=== PATIENT | male | born 1950 | race Caucasian/White ===

== ENCOUNTER 2019-08-27 17:21 | Emergency (ER) | payer MEDICARE, OTHER, SELFPAY ==
--- NOTE | ~2019-08-27 | US_ITS ---
EXAMINATION: US venous doppler LE RT EXAM DATE: 08/27/2019 18:10 INDICATION: Right leg pain and swelling. TECHNIQUE: Multiple grayscale, color flow and Doppler images of the right lower extremity deep venous system were obtained and reviewed. There is no prior study for comparison. FINDINGS: The right common femoral, femoral and profunda veins demonstrate normal color flow, respira tory variation, augmentation and compressibility. Compressibility, color flow confirmed within the r ight popliteal, posterior tibial, peroneal, and greater saphenous veins. IMPRESSION: 1. No right lower extremity deep venous thrombosis. Reviewed, dictated and finalized at location A.
[2019-08-27 17:29] VITALS: BP 174/91; PULSE 79; RESP 18; TEMP 36.1; O2SAT 95
[2019-08-27 17:53] LABS: Basophils Percent Auto 0.5 % (0.2-1.2); Eosinophils Absolute Auto 0.3 K/mm3 (0-0.3); Eosinophils Percent Auto 5.1 % (0-4.4); Hematocrit 47.6 % (42.0-52.0); Hemoglobin 16.3 g/dL (14.0-18.0); Immature Granulocyte Absolute 0.01 K/mm3 (0.00-0.031); Immature Granulocyte Percent A 0.2 % (0-0.5); Lymphocytes Absolute Auto 2.06 K/mm3 (0.9-3.2); Lymphocytes Percent Auto 32.9 % (18.3-44.2); Mean Corpuscular HGB Conc 34.2 g/dl (32-36); Mean Corpuscular Hemoglobin 30.9 pg (26-34); Mean Corpuscular Volume 90.3 fl (80-100); Mean Platelet Volume 9.3 fl (7.4-10.4); Monocytes Absolute Auto 0.5 K/mm3 (0.1-0.6); Neutrophils Absolute Auto 3.3 K/mm3 (1.3-6.7); Neutrophils Percent Auto 53.3 % (45.5-73.1); Platelet Count Result 258 k/mm3 (150-375); Red Blood Count 5.27 M/mm3 (4.6-6.20); White Blood Count 6.3 K/mm3 (4.5-10.0)
[2019-08-27 18:06] LABS: Blood Urea Nitrogen 15 mg/dL (9-20); Calcium 9.2 mg/dL (8.4-10.2); Carbon Dioxide 30 mmol/L (22-30); Chloride 100 mmol/L (98-107); Estimated CRCL calculation 77 ml/min; Estimated Glomerular Filt Rate > 60; Glucose 100 mg/dL (75-110); Potassium 3.1 mmol/L (3.4-5.0); Sodium 138 mmol/L (137-145)
--- NOTE | 2019-08-27 18:33 | ED.LOWEXIN ---
HPI - Extremity Injury (Lower) General Chief Complaint: Extremity Injury, Lower Stated Complaint: right leg pain Time Seen by Provider: 08/27/19 17:27 History of Present Illness HPI Narrative: Patient is a 69-year-old male who presents the ER with right lower extremity pain. Located in the right posterior thigh and radiates down the leg. It is intermittent. If he lays down flat when it is occurring the pain goes away. No recent injury or trauma. Reports he has had increased swelling of the affected leg. No history of DVT or PE. He is not on blood thinners. He is without chest pain or shortness of breath. Related Data Home Medications Medication Instructions Recorded Confirmed clopidogrel 75 mg PO DAILY 08/27/19 Allergies Allergy/AdvReac Type Severity Reaction Status Date / Time No Known Allergies Allergy Unverified 08/27/19 17:32 Review of Systems Review of Systems: All systems reviewed & are unremarkable except as noted in HPI and below Cardiovascular: Cardiovascular: Denies chest pain Respiratory: Respiratory: Denies cough and Denies dyspnea Musculoskeletal: Musculoskeletal: Reports muscle cramps Comments: Right lower extremity edema PMFSH Past Medical History Medical History (Updated 08/27/19 @ 18:37 by Kvng Brown MD) Patient denies significant medical history Surgical History Surgical History (Updated 08/27/19 @ 18:35 by Kvng Brown MD) H/O right knee surgery Family History Family History (Updated 12/14/15 @ 09:14 by DOCTOR UNKNOWN) Mother Family history of lung cancer Other Diabetes mellitus Family history of cardiovascular disease Hypertension Social History Social History Smoking status: Never smoker Alcohol intake: current Gender identity (if verbalized by the patient): Male Exam Narrative: Exam Narrative: GENERAL: Well-appearing, well-nourished, and in no acute distress. HEAD: Normocephalic, atraumatic. CHEST: Clear to auscultation. No respiratory distress. HEART: Regular rate and rhythm. Normal peripheral pulses. EXTREMITIES: Normal range of motion. No reproducible tenderness right lower extremity in the calf or thigh. Trace mid calf edema on the right side when compared to the left. Brisk capillary refill with normal dorsalis pedis and posterior tibial pulses on the right side. SKIN: Warm, dry, no rash. NEURO: Alert and oriented x3. Course Course Emergency Course: Patient informed of results. Discharge home. Suspect patient's having some muscle cramps. Will recommend potassium supplementation. Vital Signs Vital signs: Vital Signs Temperature 97.0 F L 08/27/19 17:29 Pulse Rate 79 08/27/19 17:29 Respiratory Rate 18 08/27/19 17:29 Blood Pressure 174/91 H 08/27/19 17:29 Pulse Oximetry 95 08/27/19 17:29 Temperature 97.0 F L 08/27/19 17:29 Pulse Rate 79 08/27/19 17:29 Respiratory Rate 18 08/27/19 17:29 Blood Pressure 174/91 H 08/27/19 17:29 Pulse Oximetry 95 08/27/19 17:29 MDM - Extremity Injury (Lower) Lab Data Result diagrams: 08/27/19 17:47 08/27/19 17:47 Labs: Lab Results 08/27/19 08/27/19 Range/Units 17:47 17:47 WBC 6.3 (4.5-10.0) K/mm3 RBC 5.27 (4.6-6.20) M/mm3 Hgb 16.3 (14.0-18.0) g/dL Hct 47.6 (42.0-52.0) % MCV 90.3 (80-100) fl MCH 30.9 (26-34) pg MCHC 34.2 (32-36) g/dl RDW 13.0 (11.5-14.5) % Plt Count 258 (150-375) k/mm3 MPV 9.3 (7.4-10.4) fl Immature Gran % (Auto) 0.2 (0-0.5) % Neut % (Auto) 53.3 (45.5-73.1) % Lymph % (Auto) 32.9 (18.3-44.2) % Crook % (Auto) 8.0 (2.6-8.5) % Eos % (Auto) 5.1 H (0-4.4) % Baso % (Auto) 0.5 (0.2-1.2) % Lymph # (Auto) 2.06 (0.9-3.2) K/mm3 Crook # (Auto) 0.5 (0.1-0.6) K/mm3 Eos # (Auto) 0.3 (0-0.3) K/mm3 Baso # (Auto) 0.0 (0.0-0.1) K/mm3 Abs Immat Gran (auto) 0.01 (0.00-0.031) K/mm3 Absolute Neuts (auto) 3.3 (1.3-6.7) K/mm3 Ab
== END 2019-08-27 18:59 | disposition home or self-care (01) ==
PROVIDERS: Emergency Provider Emergency Medicine; PCP Internal Medicine
DX: E87.6 Hypokalemia (principal); R25.2 Cramp and spasm
CPT/HCPCS: 36415; 80048; 85025; 93971; 99284

== ENCOUNTER 2020-09-15 12:55 | Inpatient (IN) | payer MEDICARE, OTHER, SELFPAY ==
[2020-09-15] VITALS (17 sets, daily range): BP systolic 119–191; BP diastolic 87–110; PULSE 74–101; RESP 14–28; TEMP 37.4–39.3; O2SAT 93–99; BMI 36.6
--- NOTE | ~2020-09-15 | CT_ITS ---
EXAMINATION: CT cervical spine wo con DATE: 09/16/2020 11:08 INDICATION: Neck injury. TECHNIQUE: Computed tomography (CT) of the cervical spine was performed without intravenous contrast. Automated exposure control and iterative reconstruction technique were employed. The dose-length pro duct was 505.24 mGy-cm. COMPARISON: None FINDINGS: There is 3 degrees levocurvature of cervical spine. There is mild kyphosis of cervical spin e. Vertebral body heights are normal. There is 2 mm anterolisthesis of C3 on C4. There is mildly decr eased disc height at C2-C3 and C3-C4, and severely decreased disc height from C5-C6 through C7-T1. Th ere is an old healed fracture of T1 spinous process. 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 The following disc levels are specifically discussed: C2-C3: There is mild bilateral uncovertebral joint osteoarthritis. There is severe bilateral facet glenna int osteoarthritis. There is moderate bilateral neural foraminal stenosis. There is mild central vick l stenosis. C3-C4: There is severe right and moderate left uncovertebral joint osteoarthritis. There is severe bi lateral facet joint osteoarthritis. There is moderate bilateral neural foraminal stenosis. There is m oderate central canal stenosis. C4-C5: There is mild bilateral uncovertebral joint osteoarthritis. There is severe bilateral facet glenna int osteoarthritis. There is moderate bilateral neural foraminal stenosis. There is moderate central canal stenosis. C5-C6: There is severe bilateral uncovertebral joint osteoarthritis. There is mild bilateral facet glenna int osteoarthritis. There is moderate bilateral neural foraminal stenosis. There is severe central ca nal stenosis. C6-C7: There is severe bilateral uncovertebral joint osteoarthritis. There is moderate bilateral face t joint osteoarthritis. There is mild right and severe left neural foraminal stenosis. There is moder ate central canal stenosis. C7-T1: There is severe bilateral uncovertebral joint osteoarthritis. There is severe bilateral facet joint osteoarthritis. There is moderate right and severe left neural foraminal stenosis. There is mil d central canal stenosis. IMPRESSION: 1. No acute fracture. 2. Severe cervical spondylosis. Reviewed, dictated and finalized at location B.
--- NOTE | ~2020-09-15 | XR_ITS ---
EXAMINATION: XR chest 1V portable DATE: 09/15/2020 14:50 INDICATION: 3 days of fever TECHNIQUE: frontal view of the chest was obtained. COMPARISON: None FINDINGS: Confluent airspace opacity in the right lower lung zone concerning for pneumonia. Left lung is clear. No pleural effusion or pneumothorax. Heart size is normal. There is increased prominence of the righ t hilum and aortic arch with smooth margins. The former could be due to other lymphadenopathy or enla rgement of the central pulmonary arteries due to pulmonary arterial hypertension. The latter suggests possibility of aortic aneurysm or ectasia. IMPRESSION: 1. Airspace opacities in the right lower lung zone which given the provided history is concerning for pneumonia. 2. Increased prominence of the right hilum which could be due to nonspecific lymphadenopathy or enlar gement of the central pulmonary arteries due to pulmonary arterial hypertension. 3. Increased prominence of the aortic arch which raises possibility of aortic aneurysm or ectasia. Co uld consider contrast-enhanced chest CT for further evaluation of both this and the right hilar enlar gement. Reviewed, dictated and finalized at location A. IMPRESSION: 1. Airspace opacities in the right lower lung zone which given the provided his tory is concerning for pneumonia. 2. Increased prominence of the right hilum which could be due to nonspecific ly mphadenopathy or enlargement of the central pulmonary arteries due to pulmonary arterial hypertension. 3. Increased prominence of the aortic arch which raises possibility of aortic a neurysm or ectasia. Could consider contrast-enhanced chest CT for further evalu ation of both this and the right hilar enlargement.
--- NOTE | ~2020-09-15 | CT_ITS ---
EXAMINATION: CTA chest DATE: 09/16/2020 11:08 INDICATION: Aortic aneurysm. Abnormal chest radiographs. TECHNIQUE: Computed tomographic angiography (CTA) of the chest was performed with 100 mL Omnipaque-35 0 intravenous contrast. Automated exposure control and iterative reconstruction technique were employ ed. The dose-length product was 1153.51 mGy-cm. Maximum intensity projection 3D-reconstructions of th e aorta and other arteries were constructed by the technologist on a separate workstation. COMPARISON: Chest single view 09/15/2020 FINDINGS: Motion artifact is noted. There are airspace opacities and groundglass opacities with air b ronchograms in right middle lobe, consistent with pneumonia. There are trace pleural effusions. There are nodules in the thyroid measuring up to 7 mm, likely not clinically significant. The heart size i s normal. There are coronary artery calcifications. No pericardial effusion. There is ectasia of asce nding aorta measuring 4.1 cm. The central pulmonary arteries are enlarged, consistent with pulmonary arterial hypertension. There are cysts in left kidney measuring up to 6.7 cm. There are bridging endp late osteophytes at multiple levels in the spine, consistent with diffuse idiopathic skeletal hyperos tosis (DISH). IMPRESSION: 1. Right middle lobe pneumonia. 2. Ectasia of ascending aorta measuring 4.1 cm. Reviewed, dictated and finalized at location B.
--- NOTE | ~2020-09-15 | CT_ITS ---
EXAMINATION: CT brain wo con DATE: 09/16/2020 11:08 INDICATION: Altered mental status TECHNIQUE: Computed tomography (CT) of the head was performed without intravenous contrast. Sagittal and coronal reconstructions were performed. The mA was adjusted according to patient size. Iterative reconstruction technique was employed. The dose-length product was 681.00 mGy-cm. COMPARISON: None FINDINGS: No acute intracranial hemorrhage, acute infarction or abnormal extra axial fluid collection. There is mild scattered white matter hypoattenuation consistent with chronic small vessel ischemic disease. V entricles are normal and symmetric. No mass/mass effect. Mild mucosal thickening scattered throughout the paranasal sinuses with small mucous retention cysts in the right maxillary sinus. The orbits and mastoid air cells are normal. Intracranial calcified cerebral atherosclerosis is noted. IMPRESSION: 1. Mild scattered white matter hypoattenuation consistent with chronic small vessel ischemic disease. No acute intracranial process. Reviewed, dictated and finalized at location A. IMPRESSION: 1. Mild scattered white matter hypoattenuation consistent with chronic small ve ssel ischemic disease. No acute intracranial process.
--- NOTE | 2020-09-15 13:11 | ECG_ITS ---
Measurements Intervals [place] Rate: 99 P: 44 MS: 141 QRS: -61 QRSD: 142 T: 82 QT: 376 QTc: 484 Interpretive Statements SINUS RHYTHM POSSIBLE LEFT ATRIAL ENLARGEMENT RIGHT BUNDLE BRANCH BLOCK LEFT ANTERIOR FASCICULAR BLOCK LEFT VENTRICULAR HYPERTROPHY AND ST-T CHANGE BASELINE ARTIFACT- I, II, III, AVR, AVL, AVF ABNORMAL ECG Electronically Signed On 09-15-2020 20:19:24 CDT by Leandro Godoe D.O.
--- NOTE | 2020-09-15 13:51 | ED.GENADULT ---
HPI - General Adult General Chief complaint: Fever Stated complaint: weakness, fever Time Seen by Provider: 09/15/20 13:11 Source: patient and family History of Present Illness HPI narrative: Patient is a 70 y/o male complaining moderate generalized weakness for 3-4 days. There is no known alleviating or exacerbating factor. He also complains of frequent urination starting 3-4 days ago. He states that he has been going to bathroom almost every hour. His states that he passed out yesterday. He also has cough. He has no pain. He has no SOB or vomiting. Related Data Home Medications Medication Instructions Recorded Confirmed clopidogrel 75 mg PO DAILY 08/27/19 Allergies Allergy/AdvReac Type Severity Reaction Status Date / Time No Known Allergies Allergy Unverified 08/27/19 17:32 Review of Systems Constitutional: Constitutional: Denies chills, Reports fever(s), Denies headache(s) and Reports weakness Eyes: Eyes: Denies blurry vision ENT: Denies headache(s) and Denies neck pain Cardiovascular: Cardiovascular: Denies chest pain and Denies dyspnea Respiratory: Respiratory: Reports cough and Denies dyspnea Gastrointestinal: Gastrointestinal: Denies abdominal pain, Denies diarrhea, Denies nausea and Denies vomiting Genitourinary: Genitourinary: Denies hematuria, Denies dysuria and Reports urinary frequency Musculoskeletal: Musculoskeletal: Denies back pain and Denies neck pain Neurologic: Reports syncope, Denies headache(s) and Reports weakness PMFSH Past Medical History Medical History Patient denies significant medical history Surgical History Surgical History H/O right knee surgery Family History Family History Mother Family history of lung cancer Other Diabetes mellitus Family history of cardiovascular disease Hypertension Social History Social History Smoking status: Never smoker Alcohol intake: current Gender identity (if verbalized by the patient): Male Exam Const: General: no acute distress and well developed Orientation/consciousness: oriented to person, oriented to place, oriented to time and patient oriented x3 HENMT: Head: normocephalic Ears: external ears normal General nose exam: Normal external nose present Eyes: General: appearance normal, both eyes and all related structures Conjunctivae: conjunctivae normal Neck: Neck: normal visual inspection and full ROM Chest: Chest palpation & inspection: normal inspection of the chest and no tenderness Resp: Effort & Inspection: normal respiratory effort Auscultation: clear to auscultation bilaterally Cardio: Rate: tachycardic Rhythm: regular rhythm GI: GI Palp: No abdominal tenderness and Yes Soft to palpation Skin: General skin exam: normal color and turgor normal Neuro: General: oriented to person, oriented to place, oriented to time and patient oriented x3 Cognition (Neuro): normal cognition Extrem: General: normal to inspection, full ROM and no pedal edema Psych: Appearance: grossly normal Mental Status: mental status grossly normal Affect: normal affect Course Consultations Consultation #1: Discussed with PUJA Ledezma, who agrees to admit. Date: 09/15/20 Time: 17:13 Vital Signs Vital signs: Vital Signs Temperature 39.3 C H 09/15/20 13:03 Pulse Rate 101 H 09/15/20 13:03 Respiratory Rate 23 H 09/15/20 13:03 Blood Pressure 191/102 H 09/15/20 13:03 Pulse Oximetry 96 09/15/20 13:03 Temperature 37.6 C H 09/15/20 15:45 Pulse Rate 76 09/15/20 17:02 Respiratory Rate 26 H 09/15/20 17:02 Blood Pressure 151/99 H 09/15/20 17:02 Pulse Oximetry 98 09/15/20 16:42 Medical Decision Making Vital Signs Vital Signs: Vital Signs Temperature 39.3 C H 09/15/20 13:03 Pulse R
[2020-09-15] MEDS: ACETAMINOPHEN 325 MG TABLET 650 MG PO ×2 (13:55→21:54)
[2020-09-15 14:28] LABS: Basophils Percent Auto 0.2 % (0.2-1.2); Hematocrit 45.9 % (42.0-52.0); Hemoglobin 15.7 g/dL (14.0-18.0); Immature Granulocyte Absolute 0.03 K/mm3 (0.00-0.031); Immature Granulocyte Percent A 0.3 % (0-0.5); Lymphocytes Absolute Auto 0.73 K/mm3 (0.9-3.2); Mean Corpuscular HGB Conc 34.2 g/dl (32-36); Mean Corpuscular Hemoglobin 30.7 pg (26-34); Mean Corpuscular Volume 89.8 fl (80-100); Mean Platelet Volume 9.6 fl (7.4-10.4); Monocytes Absolute Auto 0.8 K/mm3 (0.1-0.6); Monocytes Percent Auto 8.1 % (2.6-8.5); Neutrophils Absolute Auto 8.8 K/mm3 (1.3-6.7); Neutrophils Percent Auto 84.4 % (45.5-73.1); Platelet Count Result 191 k/mm3 (150-375); Red Blood Count 5.11 M/mm3 (4.6-6.20); Red Cell Distribution Width 13.3 % (11.5-14.5); White Blood Count 10.4 K/mm3 (4.5-10.0)
[2020-09-15 14:40] LABS: Add Urine Microscopic? YES; Appearance Urine Cloudy (Clear); Bilirubin Urine Negative (Negative); Blood Urine 2+ (Negative); Color Urine Amber (Yellow); Glucose Urine UA Negative (Negative); Ketones Urine Negative (Negative); Leukocyte Esterase Ur Negative LEU/UL (Negative); Mucus Urine Moderate /lpf; Nitrate Urine Negative (Negative); Protein Urine 2+ mg/dL (Negative); Specific Grav Ur 1.021 (1.001-1.035); Squamous Epithelial Cell Urine Few /hpf (Few); Urobilinogen Urine Negative mg/dL (<2.0); WBC Urine 0-3 /hpf
[2020-09-15 14:44] LABS: Alanine Aminotransferase 17 U/L (4-50); Alkaline Phosphatase 86 U/L (38-126); Anion Gap 8 mmol/L (8-16); Aspartate Amino Transferase 77 U/L (17-59); Bilirubin,Total 1.3 mg/dL (0.2-1.3); Blood Urea Nitrogen 20 mg/dL (9-20); Calcium 8.6 mg/dL (8.4-10.2); Carbon Dioxide 28 mmol/L (22-30); Chloride 101 mmol/L (98-107); Estimated CRCL calculation 62 ml/min; Estimated Glomerular Filt Rate 60; Glucose 134 mg/dL (75-110); Potassium 3.1 mmol/L (3.4-5.0); Sodium 137 mmol/L (137-145)
[2020-09-15] MEDS: POTASSIUM CHLORIDE 20 MEQ TABLET 40 MEQ PO (15:58)
--- NOTE | 2020-09-15 19:20 | ADMGEN ---
This patient, Jony Banuelos, was admitted to Medical Room 345-. Patient/family oriented to hospital policies and general routines including ID bracelet, bed and alarms, visiting hours, pain management, procedures, bathroom and other care routines, personal items, smoking policy, room service/diet, and visiting hours. Information on how to activate the Rapid Response Team has been discussed. Patient/Family are encouraged to report perceived risks to care and to ask questions if they do not understand what they are told or what they should do.
--- NOTE | 2020-09-15 21:58 | PM.IMHP ---
H&P: HPI History of Present Illness Date/Time: 09/15/20 21:58 Chief Complaint: Fever Narrative: This is a 70-year-old male with past medical history significant for hypertension dyslipidemia coronary artery disease degenerative joint disease. Patient presented to the emergency room due to generalized weakness and fevers and chills. Patient is confused he is unable to give me much history he knows where he but has trouble is stating why he is in the hospital. Preliminary workup was significant for a chest x-ray with lung infiltrates. Patient is unable to give me any history but states that he feels weak. Review of Systems Review of Systems: ROS unobtainable: Yes unobtainable due to medical condition (Altered mental status confusion) Constitutional: Constitutional: Reports fever(s) PMFSH Past Medical History Medical History (Updated 09/15/20 @ 22:07 by Nikhil Fowler MD) Arthritis Hypercholesteremia Hypertension Patient denies significant medical history Surgical History Surgical History H/O right knee surgery Family History Family History Mother Family history of lung cancer Other Diabetes mellitus Family history of cardiovascular disease Hypertension Social History Social History (Updated 09/15/20 @ 19:43 by Jocelyne Blevins, PEDRO) Smoking status: Never smoker Alcohol intake: current Drinks per week: 1 Substance use: never Living arrangements: with family Occupation/Education: retired Gender identity (if verbalized by the patient): Male Spiritual care concerns: No Meds Home Medications and Allergies Home Medications Medication Instructions Recorded Confirmed Type clopidogrel 75 mg PO DAILY 08/27/19 09/15/20 History potassium chloride 20 meq PO BID #7 tablet 08/27/19 09/15/20 Rx atorvastatin 80 mg PO DAILY 09/15/20 09/15/20 History doxazosin 8 mg PO DAILY 09/15/20 09/15/20 History hydrochlorothiazide 50 mg PO DAILY 09/15/20 09/15/20 History meloxicam 15 mg PO DAILY 09/15/20 09/15/20 History Allergies Allergy/AdvReac Type Severity Reaction Status Date / Time No Known Allergies Allergy Verified 09/15/20 19:38 Vital Signs Vital Signs - 24 hr 09/15/20 13:03 09/15/20 14:11 09/15/20 14:25 Temperature 102.7 F H 99.7 F H Pulse Rate 101 H 87 Respiratory Rate 23 H 26 H Blood Pressure 191/102 H Pulse Oximetry 96 09/15/20 14:43 09/15/20 14:44 09/15/20 14:45 Temperature Pulse Rate 88 89 88 Respiratory Rate 25 H 24 H 28 H Blood Pressure 163/93 H Pulse Oximetry 93 09/15/20 15:15 09/15/20 15:21 09/15/20 15:45 Temperature 99.7 F H Pulse Rate 81 78 76 Respiratory Rate 21 H 14 Blood Pressure 119/87 Pulse Oximetry 99 09/15/20 16:00 09/15/20 16:20 09/15/20 16:41 Temperature Pulse Rate 81 75 77 Respiratory Rate 16 Blood Pressure 174/110 H Pulse Oximetry 95 09/15/20 16:42 09/15/20 16:56 09/15/20 17:02 Temperature Pulse Rate 75 74 76 Respiratory Rate 15 26 H Blood Pressure 140/91 H 151/99 H Pulse Oximetry 98 09/15/20 19:34 Temperature 99.4 F Pulse Rate 93 Respiratory Rate 22 H Blood Pressure 174/88 H Pulse Oximetry 96 Exam Narrative: Exam Narrative: Patient was brought to the emergency room due to fevers and generalized weakness he was found to have lung infiltrates on chest x-ray Const: General: comfortable, no acute distress, well developed, alert, awake and Physically active Nutritional Appearance: overweight Orientation/consciousness: oriented to person, oriented to place and confusion HENMT: Head: normal to inspection, normocephalic and atraumatic Ears: hearing grossly normal bilaterally Face and sinus: normal facial exam Eyes: General: appearance normal, both eyes and all related structures Pupils: Equal, round and reactive pupils present EOM: EOMs intact bilaterally Neck: Neck: full
[2020-09-16] VITALS (15 sets, daily range): BP systolic 136–188; BP diastolic 70–98; PULSE 75–85; RESP 17–20; TEMP 36.6–37.3; O2SAT 92–99
[2020-09-16] MEDS: hydroCHLOROthiazide 25 MG TABLET 50 MG PO (05:14)
[2020-09-16] MEDS: MELOXICAM 7.5 MG TABLET 15 MG PO (08:35)
[2020-09-16] MEDS: DOXAZOSIN MESYLATE 4 MG TABLET 8 MG PO (08:35)
[2020-09-16] MEDS: CLOPIDOGREL BISULFATE 75 MG TABLET PO (08:35)
[2020-09-16] MEDS: ATORVASTATIN 40 MG TABLET 80 MG PO (08:35)
[2020-09-16] MEDS: POTASSIUM CHLORIDE 20 MEQ TABLET.ER PO (08:35)
[2020-09-16] MEDS: hydrALAZINE HCL 20 MG/ML VIAL 10 MG IV PUSH ×2 (08:40→20:40)
--- NOTE | 2020-09-16 09:20 | PCPTNOTE ---
Attempted PT eval. Transferring patient to different room. Will try again in this afternoon. TABBY MerinoT
--- NOTE | 2020-09-16 09:44 | PM.IMPN ---
Progress Note: A&P Assessment and Plan (1) Pneumonia of right lower lobe due to infectious organism: Code(s): J18.9 - Pneumonia, unspecified organism Status: Acute Assessment and Plan: Chest x-ray shows airspace opacities in the right lower lung zone concerning for pneumonia -continue ceftriaxone and azithromycin -he is not requiring any oxygen or feeling short of breath but does have a dry cough -he has his Kunal Kunal, vaccine in June. Because of his pneumonia and fever, will order COVID-19 testing although seems less likely -continue isolation until PCR is back -patient's white blood cell count mildly abnormal 10.4 today but did have a fever of 102.7 on admission -Draw procalcitonin (2) Acute metabolic encephalopathy: Code(s): G93.41 - Metabolic encephalopathy Status: Acute Assessment and Plan: Patient cannot remember why he came in, what month it is and is slow to respond to my questions -could be due to above, continue antibiotics -STAT CT of brain and cervical spine. Pt has had a fall with AMS. I called CT and they are going to bring him down. Patient has a history of TIA according to the son. He has no neurological deficits on exam. On plavix -await blood cultures -patient does have a headache but no pain to palpation to the cervical spine or signs of meningitis -will draw TSH (3) Syncope: Qualifiers: Syncope type: unspecified Qualified Code(s): R55 - Syncope and collapse Code(s): R55 - Syncope and collapse Status: Acute Assessment and Plan: Reports of syncope prior to admission while walking to the bathroom -He laid on the floor for 2 hours because he could not get up and refused to let girlfriend call anyone -girlfriend said he was confused but no seizure activity -Pt reports he did not hit his head but girlfriend said he had an unwitnessed fall. -could be due to PNA, dehydration, etc -STAT CT -Monitor -tele without significant abnormalities (4) Hypercholesteremia: Code(s): E78.00 - Pure hypercholesterolemia, unspecified Status: Inactive Assessment and Plan: Hold statin since CK elevated (5) Arthritis: Code(s): M19.90 - Unspecified osteoarthritis, unspecified site Status: Inactive Assessment and Plan: Continue doxazosin and meloxicam (6) Hypertension: Code(s): I10 - Essential (primary) hypertension Status: Inactive Assessment and Plan: Last bp 186/94 -Continue hydrochlorothiazide -will order PRN hydralazine (7) Rhabdomyolysis: Code(s): M62.82 - Rhabdomyolysis Status: Acute Assessment and Plan: CK is 1545 and AST mildly elevated -Start IV fluids -Pt was down for 2 hours on the floor and in bed for 2 days prior to that -could be due to high dose statin? -Will monitor -sz? seems less likely as no activity was seen but he did have syncope (8) Hypokalemia: Code(s): E87.6 - Hypokalemia Status: Acute Assessment and Plan: potassium 3.1 today with a mag of 2.1 -Will add potassium in IV fluids -encourage a consistent diet Time Spent With Patient Time with patient: 25 - 35 minutes Subjective Date/time seen: 09/16/20 09:44 Interval history: Pt is a 70-year-old male here for weakness, fevers and likely pneumonia. Patient was intermittently confused during my exam but overall able to hold a conversation but was slow to respond. Patient states he does not know why he came in. He is not any pain but does have a slight dry cough. He denies chest pain, shortness of breath, nausea, vomiting, abdominal pain or leg swelling. I spoke with his son, William cheng 2nd, who states that he noticed his dad has been more forgetful in the last few weeks. A couple years ago he had a TIA and he says his dad is intermittently mildly forgetful since then but in the last few weeks it seems to be worse. Patient states he got the Mabel
[2020-09-16 09:49] LABS: Anion Gap 8 mmol/L (8-16); Blood Urea Nitrogen 18 mg/dL (9-20); Calcium 8.7 mg/dL (8.4-10.2); Carbon Dioxide 29 mmol/L (22-30); Chloride 100 mmol/L (98-107); Creatine Kinase 1545 U/L (55-170); Estimated CRCL calculation 77 ml/min; Estimated Glomerular Filt Rate > 60; Glucose 122 mg/dL (75-110); Magnesium 2.1 mg/dL (1.6-2.3); Phosphorus 2.6 mg/dL (2.5-4.5); Potassium 3.1 mmol/L (3.4-5.0); Sodium 137 mmol/L (137-145)
--- NOTE | 2020-09-16 10:18 | PCOTNOTE ---
Attempted OT evaluation. Transferring patient to different room at this time. Will attempt this afternoon.
[2020-09-16] MEDS: ACETAMINOPHEN 325 MG TABLET 650 MG PO ×2 (10:21→23:35)
--- NOTE | 2020-09-16 10:30 | PC.NURSE ---
Patient swabbed for COVID. Patient placed on droplet precautions pending transfer to COVID room. Gave report to Ana Paula aPiz RN on 3rd Med/Surg and patient transferred to [facility] for isolation pending COVID results. Spoke with patient's significant other Ritika on the phone and explained this to her as well as to patient's son Jony Rivera. Patient transferred via bed.
--- NOTE | 2020-09-16 11:10 | PCOTNOTE ---
Attempted OT evaluation, patient is currently off the unit for testing, will follow and attempt at later time.
--- NOTE | 2020-09-16 11:18 | PC.NURSE ---
This patient, Jony Banuelos, was received from [[address] [place] [address]] on 09/16/20 at 1030. Patient/family oriented to unit policies and routines
[2020-09-16 12:27] LABS: Procalcitonin 0.2 ng/mL
[2020-09-16] MEDS: KCL 20 MEQ/LR 1,000 ML 100 ML IV CONT (12:59)
[2020-09-16] MEDS: MELATONIN 3 MG TABLET PO (20:41)
[2020-09-17] VITALS (7 sets, daily range): BP systolic 116–165; BP diastolic 70–87; PULSE 70–89; RESP 16–18; TEMP 36.2–36.6; O2SAT 95–98
[2020-09-17] MEDS: KCL 20 MEQ/LR 1,000 ML 100 ML IV CONT (05:27)
[2020-09-17 06:11] LABS: Basophils Percent Auto 0.2 % (0.2-1.2); Eosinophils Absolute Auto 0.2 K/mm3 (0-0.3); Eosinophils Percent Auto 4.4 % (0-4.4); Hematocrit 45.9 % (42.0-52.0); Hemoglobin 15.8 g/dL (14.0-18.0); Immature Granulocyte Absolute 0.02 K/mm3 (0.00-0.031); Immature Granulocyte Percent A 0.4 % (0-0.5); Lymphocytes Absolute Auto 1.35 K/mm3 (0.9-3.2); Lymphocytes Percent Auto 25.7 % (18.3-44.2); Mean Corpuscular HGB Conc 34.4 g/dl (32-36); Mean Corpuscular Hemoglobin 30.9 pg (26-34); Mean Corpuscular Volume 89.8 fl (80-100); Mean Platelet Volume 9.2 fl (7.4-10.4); Monocytes Absolute Auto 0.6 K/mm3 (0.1-0.6); Monocytes Percent Auto 11.4 % (2.6-8.5); Neutrophils Percent Auto 57.9 % (45.5-73.1); Platelet Count Result 202 k/mm3 (150-375); Red Blood Count 5.11 M/mm3 (4.6-6.20); Red Cell Distribution Width 13.4 % (11.5-14.5); White Blood Count 5.3 K/mm3 (4.5-10.0)
[2020-09-17 06:36] LABS: Alanine Aminotransferase 30 U/L (4-50); Albumin Level 3.7 g/dL (3.5-5.1); Alkaline Phosphatase 64 U/L (38-126); Anion Gap 7 mmol/L (8-16); Aspartate Amino Transferase 87 U/L (17-59); Bilirubin,Total 1.1 mg/dL (0.2-1.3); Blood Urea Nitrogen 21 mg/dL (9-20); Calcium 8.6 mg/dL (8.4-10.2); Carbon Dioxide 31 mmol/L (22-30); Chloride 100 mmol/L (98-107); Creatine Kinase 716 U/L (55-170); Estimated CRCL calculation 85 ml/min; Estimated Glomerular Filt Rate > 60; Glucose 107 mg/dL (75-110); Magnesium 2.2 mg/dL (1.6-2.3); Potassium 3.7 mmol/L (3.4-5.0); Sodium 138 mmol/L (137-145)
[2020-09-17] MEDS: hydroCHLOROthiazide 25 MG TABLET 50 MG PO (07:50)
[2020-09-17] MEDS: DOXAZOSIN MESYLATE 4 MG TABLET 8 MG PO (07:50)
[2020-09-17] MEDS: ATORVASTATIN 40 MG TABLET 80 MG PO (07:50)
[2020-09-17] MEDS: MELOXICAM 7.5 MG TABLET 15 MG PO (07:50)
[2020-09-17] MEDS: CLOPIDOGREL BISULFATE 75 MG TABLET PO (07:50)
--- NOTE | 2020-09-17 13:02 | PM.IMPN ---
Progress Note: A&P Assessment and Plan (1) Pneumonia of right lower lobe due to infectious organism: Code(s): J18.9 - Pneumonia, unspecified organism Status: Acute Assessment and Plan: CT showing right middle lobe PNA -continue ceftriaxone and azithromycin as pt is improving on this tx -he is not requiring any oxygen or feeling short of breath but does a cough. Obtain sputum sample -he had his Kunal Kunal vaccine in June. Await COVID-19 PCR -continue isolation until PCR is back -WBC NML today -afebrile since 09/15/20 (2) Acute metabolic encephalopathy: Code(s): G93.41 - Metabolic encephalopathy Status: Acute Assessment and Plan: Resolved -likely due to above -Head and neck CT without acute pathology (3) Syncope: Qualifiers: Syncope type: unspecified Qualified Code(s): R55 - Syncope and collapse Code(s): R55 - Syncope and collapse Status: Acute Assessment and Plan: Reports of syncope prior to admission while walking to the bathroom -He laid on the floor for 2 hours because he could not get up and refused to let girlfriend call anyone -girlfriend said he was confused but no seizure activity -like due to PNA (4) Hypercholesteremia: Code(s): E78.00 - Pure hypercholesterolemia, unspecified Status: Inactive Assessment and Plan: Hold statin since CK elevated (5) Arthritis: Code(s): M19.90 - Unspecified osteoarthritis, unspecified site Status: Inactive Assessment and Plan: Continue doxazosin and meloxicam (6) Hypertension: Code(s): I10 - Essential (primary) hypertension Status: Inactive Assessment and Plan: Last bp 127/85 -Continue hydrochlorothiazide -continue PRN hydralazine (7) Rhabdomyolysis: Code(s): M62.82 - Rhabdomyolysis Status: Acute Assessment and Plan: CK was 1545 on admission now 716 with AST mildly elevated -continue IV fluids -Pt was down for 2 hours on the floor and in bed for 2 days prior to that -could be due to high dose statin? -Will monitor -sz? seems less likely as no activity was seen but he did have syncope (8) Hypokalemia: Code(s): E87.6 - Hypokalemia Status: Acute Assessment and Plan: potassium 3.7 today -stop potassium supplementation -encourage a consistent diet Time Spent With Patient Time with patient: 25 - 35 minutes Subjective Date/time seen: 09/17/20 13:02 Interval history: Pt is a 70 y/o here for PNA. Pt was seen today and doing much better. He says he was confused yesterday and doesn't remember all the events that occurred. He feels stronger today and more like himself. He continues to cough with some yellow/pink sputum. He does not feel SOB or have CP. He is eating and drink well. He had a BM yesterday and denies diarrhea. No numbness/tingling/weakness/problems with speech. Review of Systems Review of Systems: All systems reviewed & are unremarkable except as noted in HPI and below Exam Narrative: Exam Narrative: General: Well developed well nourished patient in NAD HEENT: normocephalic Neck: supple, no pain to the cervical spine Neuro: Alert and oriented x4. Cranial nerves 2-12 intact. Equal strength the upper lower extremities 5/5. Able to do [id number] and rapid alternating movements. No slurred speech or delay in responses. CV:RRR. Telemetry shows occasional PVCs Resp:CTA Abd: Soft, non distended. No pain to palpation. Positive bowel sounds Extremities: No swelling, erythema, or pain to palpation. Objective Data Vital Signs Vital Signs: Vital Signs - 24 hr 09/16/20 14:53 09/16/20 16:00 09/16/20 16:08 Temperature 98 F Pulse Rate 81 78 Respiratory Rate 20 Blood Pressure 142/98 H Pulse Oximetry 94 99 09/16/20 20:00 09/16/20 23:56 09/17/20 00:00 Temperature 97.9 F 98.5 F Pulse Rate 82 82 80 Respiratory Rate 18 18 Blood
[2020-09-17] MEDS: LACTATED RINGERS 1,000 ML 100 ML IV CONT (14:36)
[2020-09-17 17:40] LABS: SARS-CoV-2 RNA PCR Negative
[2020-09-18] VITALS (9 sets, daily range): BP systolic 146–158; BP diastolic 82–93; PULSE 64–73; RESP 16–18; TEMP 36.1–36.4; O2SAT 95–100
[2020-09-18 05:55] LABS: Hematocrit 41.8 % (42.0-52.0); Hemoglobin 14.2 g/dL (14.0-18.0); Mean Corpuscular Hemoglobin 30.6 pg (26-34); Mean Corpuscular Volume 90.1 fl (80-100); Mean Platelet Volume 9.6 fl (7.4-10.4); Platelet Count Result 203 k/mm3 (150-375); Red Blood Count 4.64 M/mm3 (4.6-6.20); Red Cell Distribution Width 13.2 % (11.5-14.5); White Blood Count 5.7 K/mm3 (4.5-10.0)
[2020-09-18 06:17] LABS: Anion Gap 5 mmol/L (8-16); Blood Urea Nitrogen 16 mg/dL (9-20); Calcium 8.5 mg/dL (8.4-10.2); Carbon Dioxide 32 mmol/L (22-30); Chloride 102 mmol/L (98-107); Creatine Kinase 368 U/L (55-170); Estimated CRCL calculation 85 ml/min; Estimated Glomerular Filt Rate > 60; Glucose 102 mg/dL (75-110); Magnesium 1.9 mg/dL (1.6-2.3); Potassium 2.9 mmol/L (3.4-5.0); Sodium 139 mmol/L (137-145)
[2020-09-18] MEDS: LACTATED RINGERS 1,000 ML 100 ML IV CONT (08:03)
[2020-09-18] MEDS: DOXAZOSIN MESYLATE 4 MG TABLET 8 MG PO (08:04)
[2020-09-18] MEDS: ATORVASTATIN 40 MG TABLET 80 MG PO (08:04)
[2020-09-18] MEDS: hydroCHLOROthiazide 25 MG TABLET 50 MG PO (08:04)
[2020-09-18] MEDS: MELOXICAM 7.5 MG TABLET 15 MG PO (08:04)
[2020-09-18] MEDS: CLOPIDOGREL BISULFATE 75 MG TABLET PO (08:05)
[2020-09-18] MEDS: POTASSIUM CHLORIDE 20 MEQ TABLET 40 MEQ PO ×2 (08:52→20:24)
--- NOTE | 2020-09-18 09:26 | PM.IMPN ---
Progress Note: A&P Assessment and Plan (1) Pneumonia of right lower lobe due to infectious organism: Code(s): J18.9 - Pneumonia, unspecified organism Status: Acute Assessment and Plan: CT showing right middle lobe PNA -continue ceftriaxone and azithromycin as pt is improving on this tx -he is not requiring any oxygen or feeling short of breath but does a cough. Obtain sputum sample -he had his Kunal Kunal vaccine in June. PCR negative. -WBC NML today -afebrile since 09/15/20 -likely home tomorrow on oral antibiotics (2) Acute metabolic encephalopathy: Code(s): G93.41 - Metabolic encephalopathy Status: Acute Assessment and Plan: Resolved -likely due to above -Head and neck CT without acute pathology (3) Syncope: Qualifiers: Syncope type: unspecified Qualified Code(s): R55 - Syncope and collapse Code(s): R55 - Syncope and collapse Status: Acute Assessment and Plan: Reports of syncope prior to admission while walking to the bathroom -He laid on the floor for 2 hours because he could not get up and refused to let girlfriend call anyone -girlfriend said he was confused but no seizure activity -like due to PNA -patient requests he not be on the bed alarm. This is very distressing to him and he is going to leave against medical advice if this is not turned off. I spoke with physical therapy who is going to work with him to ensure he is safe. He understands the risk of turning off the bed alarm which includes falls, broken bones,etc. He said he is okay with the risk and will use his cane. I do think he will be okay without it. He seems to be much better and steady on his feet. He uses a cane but this is chronic. He has only fallen once at home and this was when he was dehydrated and sick. Spoke with Troy BOB about case. (4) Hypercholesteremia: Code(s): E78.00 - Pure hypercholesterolemia, unspecified Status: Inactive Assessment and Plan: Hold statin since CK elevated (5) Arthritis: Code(s): M19.90 - Unspecified osteoarthritis, unspecified site Status: Inactive Assessment and Plan: Continue doxazosin and meloxicam (6) Hypertension: Code(s): I10 - Essential (primary) hypertension Status: Inactive Assessment and Plan: Last bp 157/83 -Continue hydrochlorothiazide -continue PRN hydralazine -will stop IV fluids (7) Rhabdomyolysis: Code(s): M62.82 - Rhabdomyolysis Status: Acute Assessment and Plan: CK was 1545 on admission now 368 with AST mildly elevated -will stop IV fluids since the patient is eating and drinking and doing well -could be due to high dose statin? Less likely since the patient fell. -Will monitor -sz? seems less likely as no activity was seen but he did have syncope (8) Hypokalemia: Code(s): E87.6 - Hypokalemia Status: Acute Assessment and Plan: potassium 2.9 today -patient confirms he takes 20 mEq of potassium b.i.d. -will give 40 this morning and 40 tonight and then restart 20 mEq since he is 2.9. -encourage a consistent diet Subjective Date/time seen: 09/18/20 09:26 Interval history: Pt is a 70 y/o here for PNA. Pt was seen today and doing much better. He has an occasional cough which has turned to a dry cough. He denies fevers, chills, chest pain, shortness of breath, dyspnea on exertion, abdominal pain, diarrhea or constipation. He is very unhappy about the bed alarm situation and request that it be taken off. He understands the risk but said he he would leave against medical advice if it was not turned off. He usually uses a cane at home and does not typically fall. He does not feel weak. Exam Narrative: Exam Narrative: General: Well developed well nourished patient in NAD HEENT: normocephalic Neck: supple, no pain to the cervical spine Neuro: Alert and oriented x4. Cranial ne
[2020-09-18] MEDS: MELATONIN 5 MG TABLET PO (21:35)
[2020-09-19] VITALS: PULSE 67
[2020-09-19 04:00] VITALS: PULSE 72
[2020-09-19 06:00] VITALS: BP 147/86; PULSE 57; RESP 18; TEMP 36; O2SAT 96
[2020-09-19 06:17] LABS: Alanine Aminotransferase 36 U/L (4-50); Albumin Level 3.5 g/dL (3.5-5.1); Alkaline Phosphatase 73 U/L (38-126); Anion Gap 5 mmol/L (8-16); Aspartate Amino Transferase 62 U/L (17-59); Bilirubin,Total 0.4 mg/dL (0.2-1.3); Blood Urea Nitrogen 14 mg/dL (9-20); Calcium 8.8 mg/dL (8.4-10.2); Carbon Dioxide 34 mmol/L (22-30); Chloride 102 mmol/L (98-107); Estimated CRCL calculation 77 ml/min; Estimated Glomerular Filt Rate > 60; Glucose 105 mg/dL (75-110); Potassium 3.6 mmol/L (3.4-5.0); Sodium 141 mmol/L (137-145)
[2020-09-19 08:00] VITALS: PULSE 57; RESP 18; O2SAT 96
--- NOTE | 2020-09-19 08:43 | PM.DS ---
DS: Admitting Diagnosis Admitting Diagnosis Admitting Diagnosis: pna DS: Discharge Diagnosis Discharge Diagnosis (1) Pneumonia of right lower lobe due to infectious organism: Code(s): J18.9 - Pneumonia, unspecified organism Status: Acute Assessment and Plan: CT showed right middle lobe PNA on admission -patient improved early on ceftriaxone and azithromycin. Cefdinir was continued after discharge in 1 additional day of azithromycin was prescribed. -he did not require oxygen throughout his stay. He was unable to produce a sputum sample. -he had his Kunal Kunal vaccine in June. COVID-19 PCR negative. -WBC NML -afebrile since 09/15/20 (T-max 102.7?) (2) Acute metabolic encephalopathy: Code(s): G93.41 - Metabolic encephalopathy Status: Acute Assessment and Plan: Resolved -likely due to above -Head and neck CT without acute pathology (3) Syncope: Qualifiers: Syncope type: unspecified Qualified Code(s): R55 - Syncope and collapse Code(s): R55 - Syncope and collapse Status: Acute Assessment and Plan: Reports of syncope prior to admission while walking to the bathroom -He laid on the floor for 2 hours because he could not get up and refused to let girlfriend call anyone -girlfriend said he was confused but no seizure activity -like due to PNA -day of discharge she was able to walk with his cane without issue. He denies any need for PT/OT (4) Hypercholesteremia: Code(s): E78.00 - Pure hypercholesterolemia, unspecified Status: Inactive Assessment and Plan: Okay to resume statin -rhabdomyolysis likely due to acute illness and laying on the floor and less likely from his statin therapy (5) Arthritis: Code(s): M19.90 - Unspecified osteoarthritis, unspecified site Status: Inactive Assessment and Plan: Continue doxazosin and meloxicam (6) Hypertension: Code(s): I10 - Essential (primary) hypertension Status: Inactive Assessment and Plan: Last bp 147/86 -Continue hydrochlorothiazide (7) Rhabdomyolysis: Code(s): M62.82 - Rhabdomyolysis Status: Acute Assessment and Plan: Resolved. CK was 1545 on admission and trended down until day of discharge -Likely due to acute illness and laying on the floor (8) Hypokalemia: Code(s): E87.6 - Hypokalemia Status: Acute Assessment and Plan: Resolved DS: Summary Hospital Course Hospital Course: Patient is a 70-year-old male who presented emergency room for generalized weakness, cough, and fever starting about 3-4 days prior to admission. Patient was confused on admission but family states that he has been weak and mostly lying in bed for the last couple days. He got up to use the bathroom and fell on the floor and was not able to get up. He laid there for many hours before allowing someone to help him. Patient does not recall this. Vitals in the ER temperature 36.9? C, pulse 101, respiratory rate 23, blood pressure 191/102, pulse ox 96 on room air. Labs showed leukocytosis of 10.4 and slight hypokalemia 3.1. Lactic acid 1.0. UA not suspicious for UTI. CTA of the chest showed right middle lobe pneumonia and also noted ectasias of the ascending aorta 4.[address] and cervical spine CT did not show acute pathology. Patient was admitted to the hospitalist service and started on azithromycin and ceftriaxone for community-acquired pneumonia. This improved his condition fairly quickly. The next day he was alert and oriented x4 and felt stronger. He worked with physical therapy and felt to be back to his baseline. He did have rhabdomyolysis with an elevated CK due to his fall and received IV fluids. He continued multiple days of antibiotics until he was back to baseline and afebrile. The day of discharge the patient felt great and was ready for discharge. He was educated about the worrisom
[2020-09-19] MEDS: DOXAZOSIN MESYLATE 4 MG TABLET 8 MG PO (08:59)
[2020-09-19] MEDS: CLOPIDOGREL BISULFATE 75 MG TABLET PO (08:59)
[2020-09-19] MEDS: MELOXICAM 7.5 MG TABLET 15 MG PO (08:59)
[2020-09-19] MEDS: hydroCHLOROthiazide 25 MG TABLET 50 MG PO (08:59)
[2020-09-19] MEDS: ATORVASTATIN 40 MG TABLET 80 MG PO (08:59)
--- NOTE | 2020-09-25 13:09 | PC.NURSE ---
Blood cx are negative.
== END 2020-09-19 10:30 | disposition home or self-care (01) | DRG 871 ==
LOC: ANHED 13:40 → ANH3MED 18:08 → ANH3MEDSUR 09-17 02:32 → ANH3MED 09-23 10:50 → ANH3MEDSUR 09-23 10:50
PROVIDERS: Admitting Provider Family Medicine; Emergency Provider Emergency Medicine; PCP Internal Medicine; Visit Provider Physician Assistant
DX: A41.9 Sepsis, unspecified organism (principal); J18.9 Pneumonia, unspecified organism; G93.41 Metabolic encephalopathy; M62.82 Rhabdomyolysis; I10 Essential (primary) hypertension; E78.5 Hyperlipidemia, unspecified; I25.10 Atherosclerotic heart disease of native coronary artery without angina pectoris; M19.90 Unspecified osteoarthritis, unspecified site; E78.00 Pure hypercholesterolemia, unspecified; E66.9 Obesity, unspecified; Z68.36 Body mass index [BMI] 36.0-36.9, adult; Z20.822 Contact with and (suspected) exposure to COVID-19; Z91.81 History of falling; E87.6 Hypokalemia; Z86.73 Personal history of transient ischemic attack (TIA), and cerebral infarction without residual deficits
CPT/HCPCS: 36415; 70450; 71045; 71275; 72125; 80048; 80053; 80076; 81001; 82550; 83605; 83735; 84100; 84145; 84443; 85025; 85027; 87040; 93005; 97110; 97116; 97161; 97165; 97535; 99285; A9270; C9803; J0360; J0456; J0696; J7120; Q9967; U0003; U0005

== ENCOUNTER 2023-03-27 15:51 | Emergency (ER) | payer MEDICARE, OTHER, SELFPAY ==
[2023-03-27] VITALS (12 sets, daily range): BP systolic 116–150; BP diastolic 49–93; PULSE 56–82; RESP 14–23; TEMP 36.6; O2SAT 93–97
--- NOTE | ~2023-03-27 | XR_ITS ---
EXAMINATION: XR knee RT 3V DATE: 03/27/2023 17:51 INDICATION: Right knee injury. TECHNIQUE: 3 views of right knee were obtained. COMPARISON: Right knee radiographs 08/26/2014 FINDINGS: There is a total right knee arthroplasty in near-anatomic alignment without patellar resurf acing. No periprosthetic lucency to suggest loosening or infection. No fracture. There is a chronic n onaggressive expansile lytic lesion of posterolateral aspect of femoral metadiaphysis, likely benign. No knee joint effusion. IMPRESSION: 1. Total right knee arthroplasty in near-anatomic alignment. Reviewed, dictated and finalized at location E. AR STITCHER
--- NOTE | ~2023-03-27 | CT_ITS ---
EXAMINATION: CT brain wo con DATE: 03/27/2023 18:12 INDICATION: Syncope. Head injury. TECHNIQUE: Computed tomography (CT) of the head was performed without intravenous contrast. The mA wa s adjusted according to patient size. Iterative reconstruction technique was employed. The dose-lengt h product was 605.33 mGy-cm. COMPARISON: Head CT 09/16/2020 FINDINGS: There are scattered areas of low attenuation in the cerebral white matter. There is no intr acranial hemorrhage, acute infarction, or abnormal intracranial mass lesion. The ventricles are yasmine l in size. The orbits are normal. There is mild mucosal thickening in the paranasal sinuses. There is dependent fluid in right maxillary sinus. The mastoid air cells are normal. IMPRESSION: 1. Stable mild nonspecific cerebral white matter disease, which likely represents chronic small vesse l ischemic disease. Reviewed, dictated and finalized at location E. EAR MEDICAL TECHNOLOGIST IMPRESSION: 1. Stable mild nonspecific cerebral white matter disease, which likely represen ts chronic small vessel ischemic disease.
--- NOTE | 2023-03-27 16:05 | ECG_ITS ---
Measurements Intervals Art Rate: 57 P: 57 OK: 150 QRS: -61 QRSD: 141 T: 140 QT: 476 QTc: 467 Interpretive Statements SINUS BRADYCARDIA INTRAVENTRICULAR CONDUCTION DELAY [130+ ms QRS DURATION] LEFT ANTERIOR HEMIBLOCK LEFT VENTRICULAR HYPERTROPHY AND ST-T CHANGE [VOLTAGE CRITERIA PLUS ST/T ABNORMALITY] COMPARED TO ECG 09/15/2020 13:09:33 LATERAL T-WAVE INVERSION IS PRESENT, CONSIDER ISCHEMIA. SINUS BRADYCARDIA NOW PRESENT INTRAVENTRICULAR CONDUCTION DELAY NOW PRESENT Electronically Signed On 03-28-2023 13:22:19 RESEARCH TEST ENGINE OPERATOR by Fara Mcdowell M.D.
[2023-03-27 16:51] LABS: Basophils Percent Auto 0.4 % (0.2-1.2); Eosinophils Absolute Auto 0.2 K/mm3 (0-0.3); Eosinophils Percent Auto 1.8 % (0-4.4); Hematocrit 41.1 % (42.0-52.0); Hemoglobin 13.6 g/dL (14.0-18.0); Immature Granulocyte Absolute 0.02 K/mm3 (0.00-0.031); Immature Granulocyte Percent A 0.2 % (0-0.5); Lymphocytes Absolute Auto 1.05 K/mm3 (0.9-3.2); Lymphocytes Percent Auto 12.7 % (18.3-44.2); Mean Corpuscular HGB Conc 33.1 g/dl (32-36); Mean Corpuscular Hemoglobin 30.7 pg (26-34); Mean Corpuscular Volume 92.8 fl (80-100); Monocytes Absolute Auto 0.4 K/mm3 (0.1-0.6); Monocytes Percent Auto 5.3 % (2.6-8.5); Neutrophils Absolute Auto 6.6 K/mm3 (1.3-6.7); Neutrophils Percent Auto 79.6 % (45.5-73.1); Platelet Count Result 224 k/mm3 (150-375); Red Blood Count 4.43 M/mm3 (4.6-6.20); Red Cell Distribution Width 13.7 % (11.5-14.5); White Blood Count 8.3 K/mm3 (4.5-10.0)
[2023-03-27 17:00] LABS: Alanine Aminotransferase 8 U/L (6-50); Albumin Level 3.5 g/dL (3.5-5.1); Alkaline Phosphatase 70 U/L (38-126); Anion Gap 4 mmol/L (8-16); Aspartate Amino Transferase 24 U/L (17-59); Bilirubin,Total 0.9 mg/dL (0.2-1.3); Blood Urea Nitrogen 18 mg/dL (9-20); Calcium 8.5 mg/dL (8.4-10.2); Carbon Dioxide 28 mmol/L (22-30); Chloride 104 mmol/L (98-107); Estimated CRCL calculation 57 ml/min; Estimated Glomerular Filt Rate 55; Glucose 112 mg/dL (65-110); Potassium 3.4 mmol/L (3.4-5.0); Sodium 136 mmol/L (137-145)
--- NOTE | 2023-03-27 18:16 | ED.SYNCOPE ---
HPI - Syncope General Chief Complaint: Syncope Stated Complaint: syncope Time Seen by Provider: 03/27/23 16:15 History of Present Illness HPI narrative: Patient is a 72-year-old male who presents ER after having 2 episodes of syncope physical therapy. Apparently patient does not like the mornings before physical therapy and home him a pot of coffee. He went to physical therapy to and. While standing up he got dizzy and lost consciousness. When he sat up for EMS the same thing occurred. He did strike his head when he fell. patient does take Plavix. Patient also struck his knee when he fell and has some new swelling to the lateral aspect on the right side. Related Data Home Medications Medication Instructions Recorded Confirmed clopidogrel 75 mg tablet 75 mg PO DAILY 08/27/19 09/15/20 atorvastatin 80 mg tablet 80 mg PO DAILY 09/15/20 09/15/20 doxazosin 8 mg tablet 8 mg PO DAILY 09/15/20 09/15/20 hydrochlorothiazide 50 mg tablet 50 mg PO DAILY 09/15/20 09/15/20 meloxicam 15 mg tablet 15 mg PO DAILY 09/15/20 09/15/20 Allergies Allergy/AdvReac Type Severity Reaction Status Date / Time No Known Allergies Allergy Verified 09/15/20 19:38 Review of Systems Review of Systems: All systems reviewed & are unremarkable except as noted in HPI and below Constitutional: Constitutional: Denies chills, Denies fatigue and Denies fever(s) ENT: Denies nasal congestion and Denies sore throat Cardiovascular: Cardiovascular: Denies chest pain, Denies rapid heart rate and Denies radiating jaw, neck or arm pain Respiratory: Respiratory: Denies cough and Denies dyspnea Gastrointestinal: Gastrointestinal: Denies abdominal pain, Denies diarrhea, Denies nausea and Denies vomiting Comments: denies rectal bleeding Musculoskeletal: Musculoskeletal: Reports arthralgias, Denies joint swelling and Denies muscle cramps Neurologic: Reports syncope, Denies headache(s), Denies focal weakness and Denies numbness PMFSH Past Medical History Medical History (Updated 03/27/23 @ 18:36 by Kvng Brown MD) Arthritis Hypercholesteremia Hypertension Patient denies significant medical history Surgical History Surgical History H/O right knee surgery Family History Family History Mother Family history of lung cancer Other Diabetes mellitus Family history of cardiovascular disease Hypertension Social History Social History (Updated 09/15/20 @ 19:43 by Jocelyne Blevins, PEDRO) Smoking status: Never smoker Alcohol intake: current Drinks per week: 1 Substance use: never Living arrangements: with family Occupation/Education: retired Gender identity (if verbalized by the patient): Male Spiritual care concerns: No Exam Narrative: GENERAL: Well-appearing, well-nourished, and in no acute distress. HEAD: Normocephalic, atraumatic. EYES: PERRL and EOMI. ENT: Mucous membranes moist. CHEST: Clear to auscultation. No respiratory distress. HEART: Regular rate and rhythm. Normal peripheral pulses. ABDOMEN: Soft, nontender, nondistended. EXTREMITIES: Normal range of motion. No edema. mild swelling lateral aspect of the joint line right knee. Nonfluctuant. SKIN: Warm, dry, no rash. NEURO: Alert and oriented x3. PSYCH: Normal mood and affect. Course Course Emergency Course: Patient resting comfortably. Informed of results. Orthostatics negative after IV fluid. Patient comfortable with discharge home. Creatinine slightly elevated from baseline. Vital Signs Vital signs: Vital Signs Temperature 98 F 03/27/23 15:57 Pulse Rate 61 03/27/23 15:57 Respiratory Rate 16 03/27/23 15:57 Blood Pressure 132/79 03/27/23 15:57 Pulse Oximetry 93 03/27/23 15:57 Oxygen Delivery Room Air 03/27/23 15:57 Temperature 98 F 03/27/23 15:57 Pulse Rate 70 03/27/23 18:29 Respiratory R
== END 2023-03-27 18:40 | disposition home or self-care (01) ==
PROVIDERS: Emergency Provider Emergency Medicine; PCP Internal Medicine
DX: R55 Syncope and collapse (principal); S89.91XA Unspecified injury of right lower leg, initial encounter; I10 Essential (primary) hypertension; E78.00 Pure hypercholesterolemia, unspecified; M19.90 Unspecified osteoarthritis, unspecified site; Z96.651 Presence of right artificial knee joint; R90.82 White matter disease, unspecified; R00.1 Bradycardia, unspecified; I45.9 Conduction disorder, unspecified; I51.7 Cardiomegaly; I44.4 Left anterior fascicular block; R94.31 Abnormal electrocardiogram [ECG] [EKG]; Z79.02 Long term (current) use of antithrombotics/antiplatelets; W18.39XA Other fall on same level, initial encounter
CPT/HCPCS: 36415; 70450; 73562; 80053; 85025; 93005; 99284

== ENCOUNTER 2024-04-14 20:13 | Emergency (ER) | payer MEDICARE, OTHER, SELFPAY ==
[2024-04-14 20:30] VITALS: BP 90/61; PULSE 90; RESP 20; TEMP 36.8; O2SAT 96
[2024-04-14 21:23] LABS: Influenza A QL RT-PCR Negative (Negative); Influenza B QL RT-PCR Negative (Negative); RSV RNA, RT-PCR Negative (Negative); SARS-CoV-2 RNA PCR Negative (Negative)
[2024-04-14 21:37] VITALS: O2SAT 98
--- NOTE | 2024-04-14 23:05 | ED.GENADULT ---
HPI - General Adult General Chief complaint: Upper Respiratory Infection Stated complaint: cough and congestion Time Seen by Provider: 04/14/24 22:34 History of Present Illness HPI narrative: Patient is a 74-year-old male who presents to the emergency department this evening complaining of a cough for the past 4 weeks. Both him and his have been having similar symptoms and they tested positive for COVID approximately 4 weeks ago. He states that symptoms have not really gone away they did improve shortly and then returned again. He admits that the cough is productive of a greenish sputum. Patient was placed on a Z-Reagan by his primary care physician and states that he has 1 more day left of his Z-Reagan. Denies any fevers or chills at home. Denies any chest pain. No additional symptoms or concerns at this time. Related Data Home Medications ?Medication ?Instructions ?Recorded ?Confirmed ?Last Taken ?Type clopidogrel 75 mg tablet 75 mg PO DAILY 08/27/19 09/15/20 Unknown History atorvastatin 80 mg tablet 80 mg PO DAILY 09/15/20 09/15/20 Unknown History doxazosin 8 mg tablet 8 mg PO DAILY 09/15/20 09/15/20 Unknown History hydrochlorothiazide 50 mg tablet 50 mg PO DAILY 09/15/20 09/15/20 Unknown History meloxicam 15 mg tablet 15 mg PO DAILY 09/15/20 09/15/20 Unknown History Allergies Allergy/AdvReac Type Severity Reaction Status Date / Time No Known Allergies Allergy Verified 09/15/20 19:38 Review of Systems Review of Systems: All systems are reviewed and are negative unless stated otherwise in the HPI. FORMERLY [facility], [facility]–1983 Past Medical History Medical History Arthritis Hypertension Hypercholesteremia Patient denies significant medical history Surgical History Surgical History H/O right knee surgery Family History Family History Mother Family history of lung cancer Other Diabetes mellitus Family history of cardiovascular disease Hypertension Social History Social History Smoking status: Never smoker Alcohol intake: current Drinks per week: 1 Substance use: never Living arrangements: with family Occupation/Education: retired Gender identity (if verbalized by the patient): Male Spiritual care concerns: No Exam Narrative: General: Alert, awake, afebrile, in no acute distress. HEENT: PERRL, no rhinorrhea, no post nasal drip, oropharynx clear. Neck: Trachea midline, no JVD, no lymphadenopathy. Cardiovascular: Regular rate and rhythm, no murmurs, rubs or gallops, no peripheral edema. Respiratory: Clear to auscultation bilaterally, no tachypnea, no wheezing, no rhonchi, no rubs, no respiratory distress. Abdomen: Soft, nontender, nondistended, no rebound, no guarding, no peritoneal signs. Musculoskeletal: No joint swelling or deformity, normal muscle tone. Skin: No rashes or petechia, no signs of infection. Psychiatric: Alert and oriented, normal behavior and judgment for situation. Neurological: Alert and oriented to person, place, and time. Follows all commands. No focal deficits, speech is clear and fluent. Course Vital Signs Vital signs: Vital Signs Temperature 98.3 F 04/14/24 20:30 Pulse Rate 90 04/14/24 20:30 Respiratory Rate 20 04/14/24 20:30 Blood Pressure 90/61 L 04/14/24 20:30 Pulse Oximetry 96 04/14/24 20:30 Oxygen Delivery Room Air 04/14/24 20:30 Temperature 98.3 F 04/14/24 20:30 Pulse Rate 90 04/14/24 20:30 Respiratory Rate 20 04/14/24 20:30 Blood Pressure 90/61 L 04/14/24 20:30 Pulse Oximetry 98 04/14/24 21:37 Oxygen Delivery Room Air 04/14/24 21:37 Medical Decision Making MDM Narrative Medical decision making narrative: The patient was evaluated by myself in the emergency department. History is obtained from patient who is an independent historian and physical exam was performed. External medical records were reviewed at this time. Patient's viral swabs were obtained and noted to be negative for COVID/RSV/ influenza. Patient was informed that his test might be a faulse negatove since his tested positive for COVID and was instructed to finish the Z-Reagan that his primary care physician at prescribed him and to follow-up with his PCP within the next 3-5 days. Differential diagnosis considerations include acute viral syndrome, infectious process such as pneumonia. Comorbidities impacting this visit include none. I have evaluated and discussed social determinants of health with the patient that could potentially impact subsequent diagnosis and treatment plans. On repeat assessment of the patient, reevaluation revealed that the patient is doing well and is in no acute distress. Patient symptoms have remained stable since he arrived to our emergency department. Repeat vital signs were all reviewed and noted to be stable. Differential diagnosis and treatment plan were discussed with the patient at bedside. Patient agrees with discussion and after shared medical decision making agrees with discharge. All questions were answered to the patient's satisfaction. Patient will follow up with his PCP in 3-5 days. Patient was provided with strict return precautions and instructed to return to the emergency department if any new or worsening symptoms develop. The patient was discharged in stable condition. Vital Signs Vital Signs: Vital Signs Temperature 98.3 F 04/14/24 20:30 Pulse Rate 90 04/14/24 20:30 Respiratory Rate 20 04/14/24 20:30 Blood Pressure 90/61 L 04/14/24 20:30 Pulse Oximetry 96 04/14/24 20:30 Oxygen Delivery Room Air 04/14/24 20:30 Temperature 98.3 F 04/14/24 20:30 Pulse Rate 90 04/14/24 20:30 Respiratory Rate 20 04/14/24 20:30 Blood Pressure 90/61 L 04/14/24 20:30 Pulse Oximetry 98 04/14/24 21:37 Oxygen Delivery Room Air 04/14/24 21:37 Lab Data Labs: Lab Results 04/14/24 Range/Units 20:37 Influenza A (RT-PCR) Negative (Negative) Influenza B (RT-PCR) Negative (Negative) RSV (RT-PCR) Negative (Negative) SARS-CoV-2 RNA (RT-PCR) Negative (Negative) Discharge Plan Discharge Clinical Impression: Upper respiratory infection Patient Disposition: Home, Self-Care Condition: Stable Instructions: Antibiotic Form, Viral Syndrome (ED) Additional Instructions: Please follow-up with your family doctor within the next 3-5 days. Finish oral antibiotics that were prescribed to you by your primary care physician. Maintain your oral hydration by drinking lots of fluids and use Tylenol and or ibuprofen as needed for fever/ pain. Patient Language: Czech Prescriptions: No Action clopidogrel 75 mg Tablet 75 mg PO DAILY potassium chloride 20 mEq tablet extended release 20 meq PO BID Qty: 7 0RF hydrochlorothiazide 50 mg tablet 50 mg PO DAILY meloxicam 15 mg tablet 15 mg PO DAILY doxazosin 8 mg tablet 8 mg PO DAILY atorvastatin 80 mg tablet 80 mg PO DAILY azithromycin 250 mg tablet 250 mg PO DAILY Qty: 1 0RF Rx Instructions: Take in the evening of 09/19/20 cefdinir 300 mg capsule 300 mg PO Q12H 6 Days Qty: 12 0RF Follow-up/Referrals: Michelle,Michael Michelle MD [Primary Care Provider] - 3 Days Time of Disposition: 23:07
== END 2024-04-14 23:21 | disposition home or self-care (01) ==
PROVIDERS: Physician Assistant; Emergency Provider Emergency Medicine; PCP Internal Medicine
DX: J06.9 Acute upper respiratory infection, unspecified (principal); I10 Essential (primary) hypertension; E78.00 Pure hypercholesterolemia, unspecified; Z20.822 Contact with and (suspected) exposure to COVID-19
CPT/HCPCS: 87637; 99282

== ENCOUNTER 2024-09-09 20:48 | Emergency (ER) | payer MEDICARE, SELFPAY ==
--- NOTE | ~2024-09-09 | CT_ITS ---
EXAMINATION: CT abdomen pelvis w con DATE: 09/10/2024 00:07 INDICATION: Diarrhea, dysuria and hypertension TECHNIQUE: Computed tomography (CT) of the abdomen and pelvis was performed with 100 mL Omnipaque-350 intravenous contrast. Automated exposure control and iterative reconstruction technique were employe d. The dose-length product was 1054.19 mGy-cm. COMPARISON: None FINDINGS: Lung bases are clear. Heart size normal. Atherosclerotic coronary artery calcifications. No pericardi al or pleural effusion. Liver, gallbladder, spleen, pancreas, bilateral adrenal glands and right kidn ey are normal. There are several left renal cysts measuring up to 6.2 cm in maximal diameter. Postope rative change of prior ventral hernia repair. Bladder is normal. Prostatomegaly measuring 5.1 x 4.9 c m. There is mild scattered colonic diverticulosis without adjacent inflammatory change to suggest div erticulitis. Small bowel and appendix are normal. No free intraperitoneal gas or fluid. No pathologi nazia enlarged abdominal or pelvic lymphadenopathy. Moderate lumbar and lower thoracic spondylosis. L eft total hip arthroplasty. IMPRESSION: 1. No acute abdominal/pelvic process Reviewed, dictated and finalized at location A.
--- OUTSIDE RECORDS SUMMARY | 2024-09-09 20:52 | XMS_ITS | Referral Summary ---
Author Organization [facility] Address [address] [place] [address] Care Team Providers Care [employer] Sales Manager Name Role Phone Michael Martinez MD Primary Care Provider [phone] Jaquan Fitzgerald CORRECTIONS IDENTIFICATION TECHNICIAN Unavailable [phone] Encounters Date Type Department Care Team Description 09/09/2024 Telephone Cardiology Candice Eubanks MD 09/02/2024 Telephone [facility] [address] [place] [phone] Michael Martinez MD gout 07/03/2024 Results Follow-Up [facility] [address] [place] [address] [address] [place] [address] Tonya Sibley NP XR Foot Left 3 or More Views 07/03/2024 Results Follow-Up [facility] [address] [place] [address] [address] [place] [address] Tonya Sibley NP Uric acid, Basic metabolic panel, CBC with auto differential, Additional followed-up results: 2 07/02/2024 2:48 PM CDT - 07/02/2024 11:59 PM CDT Hospital Encounter [facility] [address] [place] [address], [place] [address] Left foot pain Discharge Disposition: Discharge to home or self care 07/02/2024 5:[address] [facility] (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, unspecified cause; Essential hypertension 06/25/2024 12:45 PM CERTIFIED VETERINARY TECHNICIAN Office Visit [facility] [address] [place] [address] 8[address] [place] [address] [place] [address] Yasmani Rosales MD PhD Atherosclerosis of coronary artery of [place] heart without angina pectoris, unspecified vessel or lesion type (Primary Dx); Essential hypertension; Hypercholesterolemia; Right bundle branch block (RBBB); PAC (premature atrial contraction); Prediabetes; History of TIA (transient ischemic attack) 06/24/2024 Telephone [facility] [address] [place] [phone] Michael Martinez MD Gout 06/23/2024 Results Follow-Up [facility] [address] [place] [phone] Shoulder Left WO Contrast, CT Chest WO Contrast 06/20/2024 2:22 PM CERTIFIED VETERINARY TECHNICIAN - 06/20/2024 11:59 PM CERTIFIED VETERINARY TECHNICIAN Hospital Encounter [facility] ([facility]) [address] [place] [phone] Michael Martinez MD Closed fracture of multiple ribs, unspecified laterality, initial encounter; Left supracondylar humerus fracture, closed, initial encounter Discharge Disposition: Discharge to home or self care 06/19/2024 [facility] [address] [place] [address] Michael Martinez MD ? left humerus fracture and rib fractures 06/18/2024 [facility] [address] [place] [address] Michael Martinez MD 06/12/2024 [facility] [place] [address] Michael Martinez MD sinus congestion from Last 3 Months Allergies No known active allergies Medications cholecalcifero l (VITAMIN D-3) 1,000 unit capsuleIndicat ions:Vitamin D Deficiency Take 1 capsule (1,000 Units total) by mouth every morning Active fexofenadine (NATHANAEL) 60 mg tabletIndicati ons:Seasonal Allergic Rhinitis Take 1 tablet (60 mg total) by mouth nightly as needed (allergies) Active folic acid/multivit- min/lutein (CENTRUM SILVER ORAL)Indicatio ns:supplement Take 1 tablet by mouth every morning Active lisinopriL (PRINIVIL,ZEST RIL) 20 mg tablet TAKE 1 TABLET BY MOUTH EVERY DAY 90 tablet 3 4 Active clopidogreL (PLAVIX) 75 mg tablet Do not take Plavix. You may restart it on August 23, 2023. 4 Active acetaminophen 500 mg capsuleIndicat ions:Pain Take 2 capsules (1,000 mg total) by mouth every 6 (six) hours as needed for pain . So not exceed 4 grams of acetaminophen daily. 4 Active hydroCHLOROthi azide (HYDRODIURIL) 50 mg tablet TAKE 1 TABLET BY MOUTH DAILY 90 tablet 3 4 Active Additional Information Patient taking differently: 50 mg oral Daily, Taking half a tab daily, Reported on 07/02/2024 atorvastatin (LIPITOR) 80 mg tablet TAKE 1 TABLET BY MOUTH IN THE MORNING 90 tablet 3 4 Active doxazosin (CARDURA) 4 mg tablet Take 1 tablet (4 mg total) by mouth every morning 90 tablet 3 5 06/26/19 26 Active cyclobenzaprin e (FLEXERIL) 5 mg tablet Take 1 tablet (5 mg total) by mouth 3 (three) times a day as needed for muscle spasms 60 tablet 5 Active colchicine (COLCRYS) 0.6 mg tablet Take 1 tab po BID x 3 days, then one tab po once daily for 1 month 36 tablet 5 Active colchicine (COLCRYS) 0.6 mg tablet Take 1 tablet (0.6 mg total) by mouth 2 (two) times a day 10 tablet 5 09/03/19 26 Active Active Problems Problem Noted Date Diagnosed Date Syncope and collapse 06/09/2023 Assessment & Plan (06/09/2023 10:07 AM CERTIFIED VETERINARY TECHNICIAN): Syncopal episode in March of 2023 that per patient was felt to be 2/2 to dehydration. He wore a 28 hour monitor with no acute arrhythmias identified but did not to have a high burden of SVE that he is asymptomatic from. He has had no further syncopal episodes. He has decreased his caffeine intake. Will obtain TTE to ensure no structural abnormalities in light of syncope and frequent PACs. PAC (premature atrial contraction) 06/09/2023 Assessment & Plan (12/12/2023 12:22 PM CDT): 48 hour Holter obtained in March of 2023 following a syncopal episode. Holter noted predominantly SR/SB with a supraventricular ectopy burden of 10% and a ventricular ectopy of 1%. He remains asymptomatic with no complaints of palpitations. DARYL with preserved ejection fraction. Will not initiate BB as he is asymptomatic and intermittently bradycardic. Provided number for sleep medicine. Referral send at last visit. Assessment & Plan (06/09/2023 10:05 AM CERTIFIED VETERINARY TECHNICIAN): 48 hour Holter obtained in March of 2023 following a syncopal episode. Holter noted predominantly SR/SB with a supraventricular ectopy burden of 10% and a ventricular ectopy of 1%. He remains asymptomatic with no complaints of palpitations. Has had noted PACs on prior EKG's. Will not initiate BB as he is asymptomatic and intermittently bradycardic. Will obtain TTE to assess for structural abnormality. Daytime somnolence 06/09/2023 Assessment & Plan (06/09/2023 10:20 AM CERTIFIED VETERINARY TECHNICIAN): Reports daytime somnolence. reports significant snoring and suspected apneic episodes. Will send referral for sleep medicine. Cervical stenosis of spine 04/27/2023 History of TIA (transient ischemic attack) 08/31 Osteoarthritis 08/30/2022 Primary osteoarthritis of right knee 08/08/2022 Assessment & Plan (08/08/2022 1:01 PM CDT): Ortho referral Pre-operative cardiovascular examination 022 Overview (11/03/2021): Added automatically from request for surgery [id number] Assessment & Plan (06/09/2023 10:17 AM CERTIFIED VETERINARY TECHNICIAN): Mr. Galeano is scheduled for a C 3-6 laminectomy and fusion on 06/12/23. He has a cardiac history significant for HTN, HLD, CAD, RBBB and SVE. He is asymptomatic with no signs or symptoms of ischemic heart disease or heart failure. Prior to recent injuries he could achieve > 4 METS (climb stairs and carry in cases of water) with no exertional symptoms. Had a syncopal episode in March with holter noting elevated SVE for which I have recommended obtaining a TTE but do not think this precludes him from proceeding with planned surgery. His RCRI score is 1 for hx of TIA which indicated a 6% risk for 30 day , IL or cardiac arrest. I do not think any additional testing will lower this risk. On ASA and Plavix therapy. On Plavix for hx of TIA. No cardiac contraindications to holding for perioperative period. Class 2 obesity in adult 02/11/2021 At risk for obstructive sleep apnea 02/11/2021 History of migraine headaches 02/11/2021 Gout, unspecified 08/10/2020 Assessment & Plan (08/10/2020 3:16 PM CDT): Xray Uric acid Colchicine TID x 2d then daily x 1 mo May resume Meloxicam Prediabetes 08/10/2020 Assessment & Plan (11/10/2023 10:18 AM CDT): A1c excellent. Assessment & Plan (08/08/2022 1:01 PM CDT): A1C 5.9% today Assessment & Plan (05/09/2022 1:28 PM CERTIFIED VETERINARY TECHNICIAN): Labs once better Assessment & Plan (08/10/2020 3:16 PM CDT): A1C 5.9% today Primary osteoarthritis of left hip 08/10/2020 Assessment & Plan (08/10/2020 3:17 PM CDT): Meloxicam daily (use, s/e reviewed) Discussed WILMER, Ortho referral-declines at this time Right bundle branch block (RBBB) 05/21/2012 Essential hypertension 05/21/2012 Assessment & Plan (12/12/2023 12:20 PM CDT): Low normal side today. No symptoms. Continue doxazosin, HCTZ and lisinopril at current doses. Keep blood pressure diary and return for review in 2 weeks. Assessment & Plan (11/10/2023 10:17 AM CDT): BP at target. Assessment & Plan (06/09/2023 9:55 AM CERTIFIED VETERINARY TECHNICIAN): Stable today in clinic. Continue doxazosin, HCTZ and lisinopril at current doses. Assessment & Plan (08/08/2022 1:02 PM CDT): Add lisinopril 20mg daily Check on home BP monitor daily, vary times of day Labs today Hypercholesterolemia 09/07/2010 Overview (08/03/2017): Description: Hypercholesterolemia Assessment & Plan (12/12/2023 12:18 PM CDT): LDL goal of < 70 in light of known CAD and hx of TIA. Continue atorvastatin 80 mg daily. Assessment & Plan (11/10/2023 10:17 AM CDT): Stable and doing well. Assessment & Plan (06/09/2023 10:18 AM CERTIFIED VETERINARY TECHNICIAN): LDL goal of < 70 in light of known CAD and hx of TIA. Continue atorvastatin 80 mg daily. Assessment & Plan (08/10/2020 3:16 PM CDT): Lipids reviewed, at goal Atherosclerosis of coronary artery 09/07/2010 Overview (08/03/2017): Description: Coronary Artery Disease Assessment & Plan (12/12/2023 12:19 PM CDT): History of LHC in 2006 with LAD stenosis of 50% per review of chart (no LHC in records). He had a negative stress test echo in 2012. Prior to his recent injuries he had an adequate functional capacity with no exertional complaints. Today he remains asymptomatic. Continue Atorvastatin and ASA therapy. Of note, is also on Plavix in light of hx of TIA. Can discuss with PCP regarding continuing DAPT. Assessment & Plan (11/10/2023 10:17 AM CDT): No chest pain. Assessment & Plan (06/09/2023 9:54 AM CERTIFIED VETERINARY TECHNICIAN): History of LHC in 2006 with LAD stenosis of 50% per review of chart (no LHC in records). He had a negative stress test echo in 2012. Prior to his recent injuries he had an adequate functional capacity with no exertional complaints. Today he remains asymptomatic. Continue Atorvastatin and ASA therapy. Of note, is also on Plavix in light of hx of TIA. Resolved Problems Problem Noted Date Diagnosed Date Resolved Date Upper respiratory tract infection 05/09/2022 08/08/2022 Assessment & Plan (05/09/2022 1:26 PM CERTIFIED VETERINARY TECHNICIAN): Augmentin BID x 10d. Pneumonia due to infectious organism 10/06/2020 05/09/2022 Assessment & Plan (10/06/2020 11:59 AM CDT): Check follow-up chest x-ray. Will add pneumococcal vaccine today. Immunizations Immunization Administration Dates Next Due Pneumococcal Polysaccharide PPV23 10/06/2020 Social History Tobacco Use Types Packs/Day Years Used Date Smoking Tobacco: Never Passive Smoke Exposure: Past Smokeless Tobacco: Never Tobacco Cessation:Counseling Given: No Alcohol Use Standard Drinks/Week Comments Yes 0 (1 standard drink = 0.6 oz pur e alcohol) AUDIT-C Answer Date Recorded Q1: How often do you have a drink containing alcohol? Never 08/08/2023 Q2: How many drinks containi ng alcohol do you have on a typical day when you are drinking? Patient does not drink Q3: How often do you have si x or more drinks on one occasion? Never 08/08/2023 Personal Safety Answer Date Recorded Have you ever been in or are you currently in a harmful physical or emotional relationship or is someone making you feel afraid or unsafe? Denies 08/08/2023 Sex and Gender Information Value Date Recorded Sex Assigned at Not on file Legal Sex Male 1:33 AM CERTIFIED VETERINARY TECHNICIAN Gender Identity Not on file Sexual Orientation Straight 06/26/2020 8: 12 PM CERTIFIED VETERINARY TECHNICIAN Last Filed Vital Signs Vital Sign Reading Time Taken Comments Blood Pressure 110/68 07/02/2024 1:33 PM CDT Pulse 78 07/02/2024 1:33 PM CDT Temperature 37.1 C (98.8 F) 05/03/2024 12:42 PM CERTIFIED VETERINARY TECHNICIAN Respiratory Rate 20 05/03/2024 12:42 PM CERTIFIED VETERINARY TECHNICIAN Oxygen Saturation 95% 06/25/2024 12:49 PM CERTIFIED VETERINARY TECHNICIAN Inhaled Oxygen Concentration - - Weight 90.3 kg (199 lb) 07/02/2024 1:33 PM CDT Height 175.3 cm (5' 9 ) 07/02/2024 1:33 PM CDT Body Mass Index 29.39 07/02/2024 1:33 PM CDT Plan of Treatment Scheduled Procedures Name Priority Associated Diagnoses Date/Ti me COLONOSCOPY Encounter for screening colonoscopy Medical Devices Implanted Type Area Night Nurse Device Identifier Shelf Expiration Date Model / Serial / Lot [employer] [id number] Mentum 59mm Press Fit Femoral Proximal Cup Acetabular - [id number] Implanted:Qty: 1 on 02/11/2021 by Richard Hickman MD at [facility] Left: Hip [employer] 12/23/2023 [id number] / / [employer] [id number] ntum 59mm 28mm Femoral Proximal Liner Acetabular - [id number] Implanted:Qty: 1 on 02/11/2021 by Richard Hickman MD at [facility] Left: Hip [employer] 01/22/2024 [id number] / / [employer] [id number] Articul/Rodney 28mm Cementless Hip +1.5mm 12/14 Taper Head Femoral Latex Free - [id number] Implanted:Qty: 1 on 02/11/2021 by Richard Hickman MD at [facility] Left: Hip [employer] 11/21/2025 [id number] / / [employer] [id number] Actis Collar Hip 7 High Offset Stem Femoral - [id number] Implanted:Qty: 1 on 02/11/2021 by Richard Hickman MD at [facility] Left: Hip [employer] 02/21/2030 [id number] / / [employer] Insert Attune Right Medial Stabilized Size 8 5mm [id number] - [id number] Implanted:Qty: 1 on 08/30/2022 by Richard Hickman MD at [facility] Right: Knee [employer] [id number] 07/22/2030 [id number] / / Description:Implant pause pe rformed [employer] Attune Cruciate Retain Cementless Knee Right 8 Component Femoral [id number] - [id number] Implanted:Qty: 1 on 08/30/2022 by Richard Hickman MD at [facility] Right: Knee [employer] [id number] 06/21/2032 [id number] / / Description:Implant pause pe rformed [employer] Attune Fb Tib Base Sz 10 Por [id number] - [id number] Implanted:Qty: 1 on 08/30/2022 by Richard Hickman MD at [facility] Right: Knee [employer] [id number] 06/21/2032 [id number] / / Description:Implant pause pe rformed Depuy Synthes Spine Screw Spinal Set Posterior Cervical Solid Symphony Titanium [id number] - [id number] Implanted:Qty: 8 on 08/08/2023 by Jarad Moreau MD at [facility] N/A: Spine Cervical Depuy Synthes Spine [id number] / / Depuy Synthes Spine 4mm 65mm Lordosis Gaurav Spinal Titanium [id number] - [id number] Implanted:Qty: 2 on 08/08/2023 by Jarad Moreau MD at [facility] N/A: Spine Cervical Depuy [employer]ynthes Spine [id number] / / [employer] Spine Graft Bone Filler Sm Inj Fibergraft Bg Gps 4cc Putty [id number] - [id number] Implanted:Qty: 1 on 08/08/2023 by Jarad Moreau MD at [facility] N/A: Spine Cervical Depuy [employer] Spine [id number] / / Depuy Spine Screw Bone 4.0 Cannulated Red 4.0x14mm [id number] - [id number] Implanted:Qty: 4 on 08/08/2023 by Jarad Moreau MD at [facility] N/A: Spine Cervical Depuy Spine [id number] / / Depuy [employer]ynthes Spine Graft Bone Filler Sm Inj Fibergraft Bg Gps 4cc Putty [id number] - [id number] Implanted:Qty: 1 on 08/08/2023 by Jarad Moreau MD at [facility] N/A: Spine Cervical Depuy Synthes Spine [id number] 03/23/2026 [id number] / / [id number] Depuy Spine Screw Bone 4.0 Cannulated Red 4.0x14mm [id number] - [id number] Implanted:Qty: 4 on 08/08/2023 by Jarad Moreau MD at [facility] N/A: Spine Cervical Depuy Spine [id number] / / Procedures Procedure Name Priority Date/Time Associated Diagnosis Comments XR FOOT LEFT 3 OR MORE VIEWS Schedule Routine, Read Routine (OP Routine) 07/02/2024 3:01 PM CDT Left foot pain EGFR Routine 07/02/2024 2:38 PM CDT 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, unspecified cause DIFFERENTIAL AUTO Routine 07/02/2024 2:3 8 PM CDT 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, unspecified cause CBC WITH AUTO DIFFERENTIAL Routine 07/02/2024 2:38 PM CDT 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, unspecified cause BASIC METABOLIC PANEL Routine 07/02/2024 2:38 PM CDT 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, unspecified cause URIC ACID Routine 07/02/2024 2:38 PM CDT 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, unspecified cause CT CHEST WO CONTRAST Schedule Routine, Read Routine (OP Routine) 06/20/2024 2:52 PM CERTIFIED VETERINARY TECHNICIAN Left supracondylar humerus fracture, closed, initial encounter CT SHOULDER LEFT WO CONTRAST Schedule Routine, Read Routine (OP Routine) 06/20/2024 2:52 PM CERTIFIED VETERINARY TECHNICIAN Closed fracture of multiple ribs, unspecified laterality, initial encounter PSA SCREEN Routine 08/08/2022 1:22 PM CDT Prostate cancer screening COLONOSCOPY 12/06/2021 1:42 PM CDT from Last 3 Months or Most Recently Relevant to Health Maintenance Results * XR Foot Left 3 or More Views (07/02/2024 3:01 PM CDT) Anatomical Region Laterality Modality Lower Extremities, Foot Left Computed Radiography 07/02/2024 3:35 PM CDT Impressions 07/02/2024 3:35 PM CDT 1. Findings most suggestive of gout with erosions with overhanging edges involving the great toe metatarsal head, great toe proximal phalanx base and possibly the 5th toe proximal phalanx base with an area of masslike soft tissue swelling at the level of the 5th MTP joint suspicious for underlying tophus. 2. Unchanged moderate left great toe and mild polyarticular midfoot osteoarthritis. Electronically signed by: Americo Womack M.D. Narrative 07/02/2024 3:35 PM CDT EXAMINATION: XR FOOT LEFT 3 OR MORE VIEWS HISTORY: left foot pain FINDINGS: 3 view examination of the nonweightbearing left foot is read with comparison to 05/25/2023. Unchanged moderate great toe metatarsophalangeal joint osteoarthritis. There are progressed osseous erosions with overhanging edges predominantly involving the medial aspect of the 1st metatarsal head and likely the medial aspect of the great toe proximal phalanx. There is a focal area of masslike soft tissue swelling overlying the 5th toe metatarsophalangeal joint with small foci of mineralization or adjacent vascular calcifications. There is a possible small erosion at the base of the 5th toe proximal phalanx. Mild polyarticular midfoot osteoarthritis. No fracture or dislocation. There is the suggestion of hallux valgus. Small distal Achilles enthesophyte. Small plantar spur. Procedure Note Jong Womack, Americo Andrews MD - 07/02/2024 EXAMINATION: XR FOOT LEFT 3 OR MORE VIEWS HISTORY: left foot pain FINDINGS: 3 view examination of the nonweightbearing left foot is read with comparison to 05/25/2023. Unchanged moderate great toe metatarsophalangeal joint osteoarthritis. There are progressed osseous erosions with overhanging edges predominantly involving the medial aspect of the 1st metatarsal head and likely the medial aspect of the great toe proximal phalanx. There is a focal area of masslike soft tissue swelling overlying the 5th toe metatarsophalangeal joint with small foci of mineralization or adjacent vascular calcifications. There is a possible small erosion at the base of the 5th toe proximal phalanx. Mild polyarticular midfoot osteoarthritis. No fracture or dislocation. There is the suggestion of hallux valgus. Small distal Achilles enthesophyte. Small plantar spur. IMPRESSION: 1. Findings most suggestive of gout with erosions with overhanging edges involving the great toe metatarsal head, great toe proximal phalanx base and possibly the 5th toe proximal phalanx base with an area of masslike soft tissue swelling at the level of the 5th MTP joint suspicious for underlying tophus. 2. Unchanged moderate left great toe and mild polyarticular midfoot osteoarthritis. Electronically signed by: Americo Womack M.D. us Tonya Sibley NP IMG XR PROCEDURES Final Resul t * (ABNORMAL) eGFR (07/02/2024 2:38 PM CDT) eGFR 47(L) >=60 mL/min/1. 73 m2 Comment: Interpretive Data Reference Interval Normal >/= 90 mL/min/1.73m2 Mildly decreased* 60 - 89 mL/min/1.73m2 Mildly to moderately decreased 45 - 59 mL/min/1.73m2 Moderately to severely decreased 30 - 44 mL/min/1.73m2 Severely decreased 15 - 29 mL/min/1.73m2 Kidney Failure < 15 mL/min/1.73m2 *Relative to young adult level Estimated glomerular filtration rate is determined by the 2020 CKD-EPI equation recommended by the National Kid[employer] (A Unifying Approach to GFR Estimation: Recommendations of the NKF-ASK Task Force on Reassessing the Inclusion of Race in Diagnosing Kidney Disease, JASN 202). The CKD-EPI equation should not be used for patients with unstable renal function and has not been validated in children and those over 70. Current interpretive data was last reviewed 2021. Blood 07/02/2024 2:38 PM CDT 07/02/2024 3:12 PM CDT us Tonya Sibley NP LAB BLOOD ORDERABLES Final Re sult [facility] Department [place] [address] * (ABNORMAL) Differential, auto (07/02/2024 2:38 PM CDT) Neutrophil abs 6.6(H) 1.5 - 6.5 K/cumm Imm gran abs 0.0 0.0 - 0.1 K/cumm [facility] Lymphocyte abs 2.4 0.8 - 3.3 K/cumm [facility] Monocyte abs 0.7 0.2 - 0.8 K/cumm [facility] Eosinophil abs 0.3 0.0 - 0.5 K/cumm [facility] Basophil abs 0.0 0.0 - 0.1 K/cumm [facility] Neutrophil pct 65.8 % [facility] Comment: Interpretive Data Percent cell count reference ranges are not reported, since discordance with absolute values may lead to misinterpretation of CBC data. Current Interpretive Data was last revised on 2017. Imm gran pct 0.4 % [facility] Comment: Interpretive Data Percent cell count reference ranges are not reported, since discordance with absolute values may lead to misinterpretation of CBC data. Current Interpretive Data was last revised on 2017. Lymphocyte pct 24.0 % [facility] Comment: Interpretive Data Percent cell count reference ranges are not reported, since discordance with absolute values may lead to misinterpretation of CBC data. Current Interpretive Data was last revised on 2017. Monocyte pct 6.5 % [facility] Comment: Interpretive Data Percent cell count reference ranges are not reported, since discordance with absolute values may lead to misinterpretation of CBC data. Current Interpretive Data was last revised on 2017. Eosinophil pct 3.0 % [facility] Comment: Interpretive Data Percent cell count reference ranges are not reported, since discordance with absolute values may lead to misinterpretation of CBC data. Current Interpretive Data was last revised on 2017. Basophil pct 0.3 % [facility] Comment: Interpretive Data Percent cell count reference ranges are not reported, since discordance with absolute values may lead to misinterpretation of CBC data. Current Interpretive Data was last revised on 2017. Blood 07/02/2024 2:38 PM CDT 07/02/2024 3:12 PM CDT Tonya Sibley CORRECTIONS IDENTIFICATION TECHNICIAN LAB BLOOD ORDERABLES Final Re sult Performing Organization Address [facility] Co de Phone Number [facility] [place] [address] * (ABNORMAL) CBC with auto differential (07/02/2024 2:38 PM CDT) WBC 10.0(H) 3.8 - 9.9 K/cumm Hgb 14.0 13.0 - 17.5 g/dL [facility] Hct 41.1 38.9 - 50.3 % [facility] Plt 332 150 - 400 K/cumm [facility] MPV 9.1 9.1 - 12.[address] [facility] RBC 4.42 4.30 - 5.80 M/cumm [facility] MCV 93.0 81.3 - 96.[address] [facility] MCH 31.7 27.1 - 33.[address] [facility] MCHC 34.1 32.3 - 35.7 g/dL [facility] RDW CV 13.4 11.1 - 14.9 % [facility] RDW SD 46.2 35.7 - 48.[address] [facility] NRBC abs 0.00 0.00 - 0.01 K/cumm [facility] Blood 07/02/2024 2:38 PM CDT 07/02/2024 3:12 PM CDT us Tonya Sibley CORRECTIONS IDENTIFICATION TECHNICIAN LAB BLOOD ORDERABLES Final Re sult Performing Organization Address [facility] Co de Phone Number [facility] [place] [address] * (ABNORMAL) Uric acid (07/02/2024 2:38 PM CDT) Uric acid 9.3(H) 3.0 - 8.0 mg/dL Blood 07/02/2024 2:38 PM CDT 07/02/2024 3:12 PM CDT Tonya Sibley CORRECTIONS IDENTIFICATION TECHNICIAN LAB BLOOD ORDERABLES Final Re sult [facility] [place] [address] * (ABNORMAL) Basic metabolic panel (07/02/2024 2:38 PM CDT) Sodium 142 135 - 145 mmol/L Potassium, pl 4.3 3.3 - 4.9 mmol/L [facility] Chloride 105 97 - 110 mmol/L [facility] CO2 28 22 - 32 mmol/L [facility] Anion gap 9 2 - 15 mmol/L [facility] BUN 31(H) 6 - 25 mg/dL [facility] Creatinine 1.57(H) 0.80 - 1.30 mg/dL [facility] Glucose 102 70 - 199 mg/dL [facility] Comment: Interpretive Data Fasting glucose >/= 126 mg/dl is diagnostic for diabetes. Fasting is defined as no caloric intake for at least 8 hours. Fasting glucose between 100 mg/dl to 125 mg/dl is diagnostic of prediabetes. In a patient with classic symptoms of hyperglycemia or hyperglycemic crisis, a random glucose >/= 200 mg/dl is diagnostic for diabetes. In the absence of unequivocal hyperglycemia, results should be confirmed by repeat testing. The classification and Diagnosis of Diabetes Diabetes Care 2021; 46: S19-S40. Current interpretive data was last revised 2022. Calcium 8.9 8.5 - 10.3 mg/dL [facility] Blood 07/02/2024 2:38 PM CDT 07/02/2024 3:12 PM CDT Tonya Sibley CORRECTIONS IDENTIFICATION TECHNICIAN LAB BLOOD ORDERABLES Final Re sult Performing Organization Address City/[facility]/ZIP Co de Phone Number [facility] [place] [address] * CT Shoulder Left WO Contrast (06/20/2024 2:52 PM CERTIFIED VETERINARY TECHNICIAN) Anatomical Region Laterality Modality Upper Extremities Left Computed Tomog shannno 06/20/2024 3:30 PM CERTIFIED VETERINARY TECHNICIAN Impressions 06/20/2024 3:47 PM CERTIFIED VETERINARY TECHNICIAN 1. No acute fracture in the left shoulder. Dictated by: Americo Womack M.D. The radiology attending physician has personally reviewed this study, and had reviewed and/or edited this written report and agrees with it. Electronically signed by: Shweta Cheung MD Narrative 06/20/2024 3:47 PM CERTIFIED VETERINARY TECHNICIAN EXAMINATION: CT SHOULDER LEFT WO CONTRAST HISTORY: Fall. TECHNIQUE: Transaxial computed tomographic imaging of the left shoulder was performed without intravenous contrast according to standard protocol. Coronal and sagittal multiplanar reformations were performed and reviewed. COMPARISON: Same date CT chest FINDINGS: Alignment is normal. No fracture or dislocation. Small linear calcifications in the area of the rotator cuff are favored to represent calcific tendinitis. Mild glenohumeral and moderate to severe acromioclavicular joint osteoarthritis. No significant glenohumeral joint effusion. There is isolated severe fatty atrophy of the teres minor muscle. The remainder of the rotator cuff muscle bulk is normal. The quadrilateral space is clear without mass lesion. Mild subcutaneous fat stranding in the left proximal posterior forearm are without organized fluid collection or organized hematoma. Partially imaged posterior instrumented spinal fusion in the cervical spine. No left axillary lymphadenopathy. Imaged portions of the left lung are clear. Atherosclerotic and coronary vascular calcifications. Procedure Note Shweta Cheung MD - 06/20/2024 EXAMINATION: CT SHOULDER LEFT WO CONTRAST HISTORY: Fall. TECHNIQUE: Transaxial computed tomographic imaging of the left shoulder was performed without intravenous contrast according to standard protocol. Coronal and sagittal multiplanar reformations were performed and reviewed. COMPARISON: Same date CT chest FINDINGS: Alignment is normal. No fracture or dislocation. Small linear calcifications in the area of the rotator cuff are favored to represent calcific tendinitis. Mild glenohumeral and moderate to severe acromioclavicular joint osteoarthritis. No significant glenohumeral joint effusion. There is isolated severe fatty atrophy of the teres minor muscle. The remainder of the rotator cuff muscle bulk is normal. The quadrilateral space is clear without mass lesion. Mild subcutaneous fat stranding in the left proximal posterior forearm are without organized fluid collection or organized hematoma. Partially imaged posterior instrumented spinal fusion in the cervical spine. No left axillary lymphadenopathy. Imaged portions of the left lung are clear. Atherosclerotic and coronary vascular calcifications. IMPRESSION: 1. No acute fracture in the left shoulder. Dictated by: Americo Womack M.D. The radiology attending physician has personally reviewed this study, and had reviewed and/or edited this written report and agrees with it. Electronically signed by: Shweta Cheung MD us Michael VARELAG CT PROCEDURES Final Resul t * CT Chest WO Contrast (06/20/2024 2:52 PM CERTIFIED VETERINARY TECHNICIAN) Anatomical Region Laterality Modality Body N/A Computed Tomogra phy [id number]|2024-09-09 20:52:00|2024-09-09 20:51:00|XMS_ITS|BKG DAEMON|External Medical Summaries|[id number]|" Encounter Summary Created on: September 09, 2024 Betito Galeano : 1950 Sex: Male Author Organization [facility] Healthcare Address [address] [place] [address] Care Team Providers Care Seed District Sales Manager Name Role Phone Michael Martinez MD Primary Care Provider [phone] Jaquan Fitzgerald CORRECTIONS IDENTIFICATION TECHNICIAN Unavailable [phone] Reason for Referral * Diagnostic Imaging (Routine) - Closed Specialty Diagnoses / Procedures Referred By Contac t Referred To Contact Diagnoses Pain of right lower extremity Procedures US Vein Duplex Lower Extremity Right Limited Michael Martinez MD Phone: tel: fax: Referral ID Status Reason Start Date Expiration Date Visits Re quested Visits Authorized [id number] Closed 09/10/2019 03/21/2021 1 1 Encounter Details Date Type Department Care Team (Late st Contact Info) Description 09/10/2019 Orders Only Internal Medicine Michael Martinze MD [address] [facility] [address] [place] [address] Pain of right lower extremity (Primary Dx) Social History Tobacco Use Types Packs/Day Years Used Date Smoking Tobacco: Never Smokeless Tobacco: Never Alcohol Use Standard Drinks/Week Comments Yes 0 (1 standard drink = 0.6 oz pur e alcohol) Sex and Gender Information Value Date Recorded Sex Assigned at Not on file Legal Sex Male 1:33 AM CERTIFIED VETERINARY TECHNICIAN Gender Identity Not on file Sexual Orientation Straight 06/26/2020 8: 12 PM CERTIFIED VETERINARY TECHNICIAN documented as of this encounter Progress Notes * Kimbelry Thompson - 09/10/2019 9:04 AM CDT leslie documented in this encounter Plan of Treatment Scheduled Procedures Name Priority Associated Diagnoses Date/Ti me COLONOSCOPY Encounter for screening colonoscopy documented as of this encounter Results * US Vein Duplex Lower Extremity Right Limited (09/10/2019 10:46 AM CDT) Anatomical Region Laterality Modality Vascular Right Ultrasound 09/10/2019 10:3 3 AM CDT Narrative 09/10/2019 4:14 PM CDT [facility] - Department of Vascular Surgery, Vascular Laboratory [address] [place] [address] Lower Extremity Venous Ultrasound Report Patient Name: BETITO GALEANO W : 1950 (69y 5m) Study Date: 09/10/2019 10:33:13 AM Gender: M Tech: Location: [facility] Ref.Provider: MICHAEL MARTINEZ Quality: Adequate Order Provider: MICHAEL MARTINEZ Procedures: Vascular Report: Venous Duplex imaging was performed in the right lower extremity. The common femoral, femoral, popliteal, posterior tibial, peroneal veins were evaluated for patency, spontaneity and phasicity with Doppler, compression and augmentation maneuvers. Great saphenous vein proximal at the junction was evaluated with compression maneuvers. - Indications: Pain in right lower extremity. Findings: Performing Audit Partner: Norah Joy RVT. Right: Venous Doppler signals in the right lower extremity are within normal limits for spontaneity and phasicity and respond normally to augmentation maneuvers. No evidence of deep vein thrombus by duplex, proximal to the calf. Comments: Contralateral common femoral vein is imaged for comparison and is patent. Unilateral (limited study) performed per M.D. order. Conclusions: 1. There is no evidence of acute deep vein thrombosis on the right. Noninvasive venous studies cannot rule out isolated calf vein obstruction. History: HTN, HLD. Previous Studies: No previous studies for comparison. Disclaimer: The signing physician has reviewed all images pertaining to this test. These images and this report will be retained in the patient chart by the Vascular Laboratory for the legally required time period. This chart constitutes the legal record of any testing performed. Electronically Signed By: Srinivasan Mtz MD FACS 2019-09-10 16:14:28 CDT CC: CC: Procedure Note Srinivasan Mtz MD - 09/10/2019 [facility] - Department of Vascular Surgery,Vascular Laboratory [address] [place] [address] Lower Extremity Venous Ultrasound Report Patient Name: BETITO GALEANO W : 1950 (69y 5m) Study Date: 09/10/2019 10:33:13 AM Gender: M Tech: AC Location: [facility] Ref.Provider: MICHAEL MARTINEZ Quality: Adequate Order Provider: MICHAEL MARTINEZ Procedures: Vascular Report: Venous Duplex imaging was performed in the right lower extremity. Thecommon femoral, femoral, popliteal, posterior tibial, peroneal veins were evaluated forpatency, spontaneity and phasicity with Doppler, compression and augmentationmaneuvers. Great saphenous vein proximal at the junction was evaluated with compressionmaneuvers. - Indications: Pain in right lower extremity. Findings: Performing Audit Partner: Norah Joy RVT. Right: Venous Doppler signals in the right lower extremity are within normallimits for spontaneity and phasicity and respond normally to augmentation maneuvers.No evidence of deep vein thrombus by duplex, proximal to the calf. Comments: Contralateral common femoral vein is imaged for comparison and is patent.Unilateral (limited study) performed per M.D. order. Conclusions: 1. There is no evidence of acute deep vein thrombosis on the right.Noninvasive venous studies cannot rule out isolated calf vein obstruction. History: HTN, HLD. Previous Studies: No previous studies for comparison. Disclaimer: The signing physician has reviewed all images pertaining to this test.These images and this report will be retained in the patient chart by the VascularLaboratory for the legally required time period. This chart constitutes the legal record ofany testing performed. Electronically Signed By: Srinivasan Mtz MD [facility] 2019-09-10 16:14:28 CDT CC: CC: Michael Martinez MD [facility] US PROCEDURES Final Resul t documented in this encounter Visit Diagnoses Diagnosis Pain of right lower extremity- Primary Pain of right lower extremity documented in this encounter Additional Health Concerns Infection Onset Date Last Indicated Resolved Time COVID: Suspected 03/23/2024 03/23/2024 03/24/2024 12:45 AM CERTIFIED VETERINARY TECHNICIAN COVID: Suspected 05/03/2024 05/03/2024 05/03/2024 1:03 PM CERTIFIED VETERINARY TECHNICIAN COVID: Suspected 05/03/2024 05/03/2024 05/03/2024 8:06 PM CERTIFIED VETERINARY TECHNICIAN documented as of this encounter Care Teams [employer] District Sales Manager Relationship Specialty Start Date End Date Michael Martinez MD PCP - General Internal Medicine 12/14/17 Jaquan Fitzgerald NP Cardiovascular Disease 06/09/23 documented as of this encounter "
--- OUTSIDE RECORDS SUMMARY | 2024-09-09 20:52 | XMS_ITS | CONTINUITY OF CARE DOCUMENT ---
Author Name nimesh beavers Address Unknown Organization [facility] Address [id number] [place] [address] [address] [place] [address] Phone [phone] Care Team Providers Care Shank Boner Name Role Phone nimesh beavers Unavailable Unavailable INSURANCE PROVIDERS Payer name Policy type / Coverage type [place] [employer] ID [facility] Other [id number]
--- OUTSIDE RECORDS SUMMARY | 2024-09-09 20:52 | XMS_ITS | Clinical Summary ---
Author Organization [facility] Address [address] [place] [address] Care Team Providers Care Architect In Training Name Role Phone Michael Martinez MD Primary Care Provider [phone] Jaquan Fitzgerald LIFE SCIENCE TECHNICIAN Unavailable [phone] Allergies No known active allergies Medications cholecalcifero [...] 06/09/2023 Assessment & Plan (06/09/2023 10:07 AM SURGICAL MANAGER): Syncopal episode in March of 2023 that [...] visit. Assessment & Plan (06/09/2023 10:05 AM SURGICAL MANAGER): 48 hour Holter obtained in March of [...] 06/09/2023 Assessment & Plan (06/09/2023 10:20 AM SURGICAL MANAGER): Reports daytime somnolence. reports significant snoring and suspected apneic episodes. Will send referral for sleep medicine. Cervical stenosis of spine 04/27/2023 History of TIA (transient ischemic attack) 08/31 Osteoarthritis 08/30/2022 Primary osteoarthritis of right knee 08/08/2022 Assessment & Plan (08/08/2022 1:01 PM CDT): Ortho referral Pre-operative cardiovascular examination 022 Overview (11/03/2021): Added automatically from request for surgery [id number] Assessment & Plan (06/09/2023 10:17 AM SURGICAL MANAGER): Mr. Banuelos is scheduled for a C 3-6 laminectomy [...] a 6% risk for 30 day , SD or cardiac arrest. I do not think [...] today Assessment & Plan (05/09/2022 1:28 PM SURGICAL MANAGER): Labs once better Assessment & Plan (08/10/2020 [...] target. Assessment & Plan (06/09/2023 9:55 AM SURGICAL MANAGER): Stable today in clinic. Continue doxazosin, HCTZ [...] well. Assessment & Plan (06/09/2023 10:18 AM SURGICAL MANAGER): LDL goal of < 70 in light [...] pain. Assessment & Plan (06/09/2023 9:54 AM SURGICAL MANAGER): History of LHC in 2006 with LAD [...] 08/08/2022 Assessment & Plan (05/09/2022 1:26 PM SURGICAL MANAGER): Augmentin BID x 10d. Pneumonia due to infectious organism 10/06/2020 05/09/2022 Assessment & Plan (10/06/2020 11:59 AM CDT): Check follow-up chest x-ray. Will add pneumococcal vaccine today. Encounters Date Type Department Care Team Description 09/09/2024 Telephone Cardiology Candice Eubanks MD 09/02/2024 Telephone [facility] [address] [place] [phone] Michael Martinez MD gout 07/03/2024 Results Follow-Up [facility] [address] [place] [address] [place] [phone] Tonya Sibley NP XR Foot Left 3 or More Views 07/03/2024 Results Follow-Up [facility] [address] [place] [address] [place] [phone] Tonya Sibley NP Uric acid, Basic metabolic panel, CBC with auto differential, Additional followed-up results: 2 07/02/2024 5:15 PM CDT Lab [facility] [address] [place] [phone] 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, unspecified cause 07/02/2024 2:48 PM CDT - 07/02/2024 11:59 PM CDT Hospital Encounter [facility] [address] [place] [phone] Left foot pain Discharge Disposition: Discharge to home or self care 07/02/2024 1:45 PM CDT Office Visit [facility] [address] [facility] [address] [place] [address] Tonya Sibley NP Left foot pain (Primary Dx); 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, unspecified cause; Essential hypertension 06/25/2024 12:45 PM SURGICAL MANAGER Office Visit [facility] [address] [facility] [address] [place] [address] [place] [address] Yasmani Rosales MD PhD Atherosclerosis of coronary artery of [place] heart without angina pectoris, unspecified vessel or lesion type (Primary Dx); Essential hypertension; Hypercholesterolemia; Right bundle branch block (RBBB); PAC (premature atrial contraction); Prediabetes; History of TIA (transient ischemic attack) 06/24/2024 Telephone [facility] [address] [place] [phone] Michael Martinez MD Gout 06/23/2024 Results Follow-Up [facility] [address] [place] [phone] Shoulder Left WO Contrast, CT Chest WO Contrast 06/20/2024 2:22 PM SURGICAL MANAGER - 06/20/2024 11:59 PM SURGICAL MANAGER Hospital Encounter [facility] [address] [place] [phone] Michael Martinez MD Closed fracture of multiple ribs, unspecified laterality, initial encounter; Left supracondylar humerus fracture, closed, initial encounter Discharge Disposition: Discharge to home or self care 06/19/2024 Telephone [facility] [address] [place] [phone] Michael Martinez MD ? left humerus fracture and rib fractures 06/18/2024 Telephone [facility] [address] [place] [phone] Michael Martinez MD 06/12/2024 [facility] [address] [facility] [address] [place] [address] Michael Martinez MD sinus congestion from Last 3 Months Immunizations Immunization Administration Dates Next Due Pneumococcal Polysaccharide PPV23 10/06/2020 Surgical History Surgery Date Site/Laterality Comments KNEE SURGERY 1980s UMBILICAL HERNIA REPAIR 04/24/1999 - 04/23/2000 CARDIAC CATHETERIZATION 04/24/2006 - 04/23/2007 TOTAL HIP ARTHROPLASTY 04/24/2020 - 04/23/2021 Left JOINT REPLACEMENT Left [facility] CERVICAL SPINE SURGERY Medical History Medical History Date Comments Gout Hypertension Hyperlipidemia TIA (transient ischemic attack) x 1 Cervical spinal stenosis Family History Medical History Relation Name Comments Cancer Mother Heart disease Mother Family history of cardiac disorder - (Added by TW Conv) Hypertension Mother Anesthesia problems Neg Hx Relation Name Status Comments Mother Social History Tobacco Use Types Packs/Day Years [...] on file Legal Sex Male 1:33 AM SURGICAL MANAGER Gender Identity Not on file Sexual Orientation Straight 06/26/2020 8: 12 PM SURGICAL MANAGER Obstetrics History Last Filed Vital Signs Vital Sign Reading Time Taken Comments Blood Pressure 110/68 07/02/2024 1:33 PM CDT Pulse 78 07/02/2024 1:33 PM CDT Temperature 37.1 C (98.8 F) 05/03/2024 12:42 PM SURGICAL MANAGER Respiratory Rate 20 05/03/2024 12:42 PM SURGICAL MANAGER Oxygen Saturation 95% 06/25/2024 12:49 PM SURGICAL MANAGER Inhaled Oxygen Concentration - - Weight 90.3 kg (199 lb) 07/02/2024 1:33 PM CDT Height 175.3 cm (5' 9 ) 07/02/2024 1:33 PM CDT Body Mass Index 29.39 07/02/2024 1:33 PM CDT Plan of Treatment Scheduled Procedures Name Priority Associated Diagnoses Date/Ti me COLONOSCOPY Encounter for screening colonoscopy Health Maintenance Due Date Last Done Comments Depression Screening 1950 Hepatitis C Screening 1950 DTaP/Tdap/Td Vaccine (1 - Tdap) 1963 Hepatitis B Screening 1970 Well Visit 65+ 2017 Covid-19 Vaccine (2 - season) 2023 06/27/2020 Fall Risk Assessment 08/08/2024 08/09/2023 Pneumococcal vaccine 65+ (2 of 2 - PCV) 11/09/2024 10/06/2020 Postponed from 10/06/2021 (Patient declined, but will receive in the future) Zoster Vaccine (1 of 2) 11/09/2024 Post poned from 2002 (Patient declined, but will receive in the future) Influenza Vaccine (Season Ended) 2024 Colon Cancer Screening-Colonoscopy 12/07/2031 12/06/2021 Colon Cancer Screening-CT Colonography Discontinued 12/06/2021 Colon Cancer Screening-DNA Stool Discontinued 12/06/2021 Colon Cancer Screening-FIT Discontinued 12/06/2021 Colon Cancer Screening-Sigmoidoscopy Discontinued 12/06/2021 Prostate Cancer Screening-PSA Discontinued 08/08/2022, 08/10/2020 Medical Devices Implanted Type Area Party Plan Sales Unit Advisor Device Identifier Shelf Expiration Date Model / Serial / Lot [employer]uy [employer] [id number] Mentum 59mm Press Fit Femoral Proximal Cup Acetabular - [id number] Implanted:Qty: 1 on 02/11/2021 by Richard Hickman MD at [facility] Left: Hip [employer] 12/23/2023 [id number] / / [employer] [id number] ntum 59mm 28mm Femoral Proximal Liner Acetabular - [id number] Implanted:Qty: 1 on 02/11/2021 by Richard Hickman MD at [facility] Left: Hip [employer] 01/22/2024 [id number] / / [employer] [id number] Articul/Rodney 28mm Cementless Hip +1.5mm 12/14 Taper Head Femoral Latex Free - [id number] Implanted:Qty: 1 on 02/11/2021 by Richard Hickman MD at [facility] Left: Hip [employer] 11/21/2025 [id number] / / Dep[employer] [id number] Actis Collar Hip 7 High Offset Stem Femoral - [id number] Implanted:Qty: 1 on 02/11/2021 by Richard Hickman MD at [facility] Left: Hip [employer] 02/21/2030 [id number] / / [employer] Insert Attune Right Medial Stabilized Size 8 5mm [id number] - [id number] Implanted:Qty: 1 on 08/30/2022 by Richard Hickman MD at [facility] Right: Knee [employer] [id number] 07/22/2030 [id number] / / Description:Implant pause pe rformed [employer] Attune Cruciate Retain Cementless Knee Right 8 Component Femoral [id number] - [id number] Implanted:Qty: 1 on 08/30/2022 by Richard Hickman MD at [facility] Right: Knee [employer] [id number] 06/21/2032 [id number] / / Description:Implant pause pe rformed [employer] Attune Fb Tib Base Sz 10 Por [id number] - [id number] Implanted:Qty: 1 on 08/30/2022 by Richard Hickman MD at [facility] Right: Knee [employer] [id number] 06/21/2032 [id number] / / Description:Implant pause pe rformed Depuy Synthes Spine Screw Spinal Set Posterior Cervical Solid Symphony Titanium [id number] - [id number] Implanted:Qty: 8 on 08/08/2023 by Jarad Moreau MD at [facility] N/A: Spine Cervical Depuy Synthes Spine [id number] / / Depuy Synthes Spine 4mm 65mm Lordosis Gaurav Spinal Titanium [id number] - [id number] Implanted:Qty: 2 on 08/08/2023 by Jarad Moreau MD at [facility] N/A: Spine Cervical Depuy Synthes Spine [id number] / / Depuy [employer]ynthes Spine Graft Bone Filler Sm Inj Fibergraft Bg Gps 4cc Putty [id number] - [id number] Implanted:Qty: 1 on 08/08/2023 by Jarad Moreau MD at [facility] N/A: Spine Cervical Depuy Synthes Spine [id number] / / Depuy Spine Screw Bone 4.0 Cannulated Red 4.0x14mm [id number] - [id number] Implanted:Qty: 4 on 08/08/2023 by Jarad Moreau MD at [facility] N/A: Spine Cervical Depuy Spine [id number] / / Depuy Synthes Spine Graft Bone Filler Sm Inj Fibergraft Bg Gps 4cc Putty [id number] - [id number] Implanted:Qty: 1 on 08/08/2023 by Jarad Moreau MD at [facility] N/A: Spine Cervical Depuy Synthes Spine [id number] 03/23/2026 [id number] / / [id number] Depuy Spine Screw Bone 4.0 Cannulated Red 4.0x14mm [id number] - [id number] Implanted:Qty: 4 on 08/08/2023 by Jarad Moreau MD at [facility] N/A: Spine Cervical Depuy Spine [id number] / / Procedures Procedure Name Priority Date/Time [...] Read Routine (OP Routine) 06/20/2024 2:52 PM SURGICAL MANAGER Left supracondylar humerus fracture, closed, initial encounter CT SHOULDER LEFT WO CONTRAST Schedule Routine, Read Routine (OP Routine) 06/20/2024 2:52 PM SURGICAL MANAGER Closed fracture of multiple ribs, unspecified laterality, [...] mild polyarticular midfoot osteoarthritis. Electronically signed by: Nolan Sunshine Womack, M.D. us Tonya Sibley LIFE SCIENCE TECHNICIAN IMG XR PROCEDURES Final Resul t * (ABNORMAL) eGFR (07/02/2024 2:38 PM CDT) Pathologist [facility] eGFR 47(L) >=60 mL/min/1. 73 m2 Comment: [...] of Race in Diagnosing Kidney Disease, JASN 2020). The CKD-EPI equation should not be used for patients with unstable renal function and has not been validated in children and those over 70. Current interpretive data was last reviewed 2021. Blood 07/02/2024 2:38 PM CDT 07/02/2024 3:12 PM CDT Tonya Sibley NP LAB BLOOD ORDERABLES Final Re sult [facility] Department of Laboratories [place], [place] [phone] * (ABNORMAL) Differential, auto (07/02/2024 2:38 PM CDT) Pathologist [facility] Neutrophil abs 6.6(H) 1.5 - 6.5 K/cumm Imm gran abs 0.0 0.0 - 0.1 K/cumm [facility] Lymphocyte abs 2.4 0.8 - 3.3 K/cumm [facility] Monocyte abs 0.7 0.2 - 0.8 K/cumm [facility] Eosinophil abs 0.3 0.0 - 0.5 K/cumm [facility] Basophil abs 0.0 0.0 - 0.1 K/cumm [facility] Neutrophil pct 65.8 % [facility] Comment: Interpretive Data Percent cell count reference ranges are not reported, since discordance with absolute values may lead to misinterpretation of CBC data. Current Interpretive Data was last revised on 2017. Imm gran pct 0.4 % [facility] Comment: Interpretive Data Percent cell count reference ranges are not reported, since discordance with absolute values may lead to misinterpretation of CBC data. Current Interpretive Data was last revised on 2017. Lymphocyte pct 24.0 % [facility] Comment: Interpretive Data Percent cell count reference ranges are not reported, since discordance with absolute values may lead to misinterpretation of CBC data. Current Interpretive Data was last revised on 2017. Monocyte pct 6.5 % [facility] Comment: Interpretive Data Percent cell count reference ranges are not reported, since discordance with absolute values may lead to misinterpretation of CBC data. Current Interpretive Data was last revised on 2017. Eosinophil pct 3.0 % [facility] Comment: Interpretive Data Percent cell count reference ranges are not reported, since discordance with absolute values may lead to misinterpretation of CBC data. Current Interpretive Data was last revised on 2017. Basophil pct 0.3 % [facility] Comment: Interpretive Data Percent cell count reference ranges are not reported, since discordance with absolute values may lead to misinterpretation of CBC data. Current Interpretive Data was last revised on 2017. Blood 07/02/2024 2:38 PM CDT 07/02/2024 3:12 PM CDT us Tonya Sibley LIFE SCIENCE TECHNICIAN LAB BLOOD ORDERABLES Final Re sult [facility] Department [place] [address] * (ABNORMAL) CBC with auto differential (07/02/2024 2:38 PM CDT) WBC 10.0(H) 3.8 - 9.9 K/cumm Hgb 14.0 13.0 - 17.5 g/dL [facility] Hct 41.1 38.9 - 50.3 % [facility] Plt 332 150 - 400 K/cumm [facility] MPV 9.1 9.1 - 12.3 fL [facility] RBC 4.42 4.30 - 5.80 M/cumm [facility] MCV 93.0 81.3 - 96.4 fL [facility] MCH 31.7 27.1 - 33.3 pg [facility] MCHC 34.1 32.3 - 35.7 g/dL [facility] RDW CV 13.4 11.1 - 14.9 % [facility] RDW SD 46.2 35.7 - 48.1 fL [facility] NRBC abs 0.00 0.00 - 0.01 K/cumm [facility] Blood 07/02/2024 2:38 PM CDT 07/02/2024 3:12 PM CDT Tonya Sibley LIFE SCIENCE TECHNICIAN LAB BLOOD ORDERABLES Final Re sult Performing Organization Address City/[facility]/ZIP Co de Phone Number [facility] [place] [address] * (ABNORMAL) Uric acid (07/02/2024 2:38 PM CDT) Pathologist [facility] Uric acid 9.3(H) 3.0 - 8.0 mg/dL Blood 07/02/2024 2:38 PM CDT 07/02/2024 3:12 PM CDT Tonya Sibley LIFE SCIENCE TECHNICIAN LAB BLOOD ORDERABLES Final Re sult [facility] [place] [address] * (ABNORMAL) Basic metabolic panel (07/02/2024 2:38 PM CDT) Pathologist [facility] Sodium 142 135 - 145 mmol/L Potassium, pl 4.3 3.3 - 4.9 mmol/L [facility] Chloride 105 97 - 110 mmol/L [facility] CO2 28 22 - 32 mmol/L [facility] Anion gap 9 2 - 15 mmol/L [facility] BUN 31(H) 6 - 25 mg/dL [facility] Creatinine 1.57(H) 0.80 - 1.30 mg/dL [facility] Glucose 102 70 - 199 mg/dL [facility] Comment: Interpretive Data Fasting glucose >/= 126 [...] 2022. Calcium 8.9 8.5 - 10.3 mg/dL [facility] Blood 07/02/2024 2:38 PM CDT 07/02/2024 3:12 PM CDT us Tonya Sibley NP LAB BLOOD ORDERABLES Final Re sult [facility] Department [place] [address] * CT Shoulder Left WO Contrast (06/20/2024 2:52 PM SURGICAL MANAGER) Anatomical Region Laterality Modality Upper Extremities Left Computed Tomog shannon 06/20/2024 3:30 PM SURGICAL MANAGER Impressions 06/20/2024 3:47 PM SURGICAL MANAGER 1. No acute f [id number]|2024-09-09 23:19:12|2024-09-09 23:19:12|ED.DIZZY||||"HPI - Dizziness General Chief Complaint: Dizziness Stated Complaint: High BP --sent by Feed In Worker Time Seen by Provider: 09/09/24 22:32 History of Present Illness HPI Narrative: Patient presents here with sent by his relief manager after he reported to relief manager that he was clammy, having lots of diarrhea, with blood pressure of 250. He is on blood pressure medications but is not taking lisinopril anymore because he thought it made his blood pressure too low. To me he states that he has been having more urinary frequency, some diarrhea, and some dizziness but that has essentially resolved. Denies chest pain or shortness of breath or abdominal pain. Related Data Home Medications Medication Instructions Recorded Confirmed Last Taken Type clopidogrel 75 mg tablet 75 mg PO DAILY 08/27/19 09/09/24 Unknown History atorvastatin 80 mg tablet 80 mg PO DAILY 09/15/20 09/09/24 Unknown History doxazosin 8 mg tablet 8 mg PO DAILY 09/15/20 09/09/24 Unknown History hydrochlorothiazide 50 mg tablet 50 mg PO DAILY 09/15/20 09/09/24 Unknown History colchicine 0.6 mg tablet 0.6 mg PO BID 09/09/24 09/09/24 Unknown History cyclobenzaprine 5 mg tablet 5 mg PO TID PRN muscle spasm 09/09/24 09/09/24 Unknown History lisinopril 20 mg tablet 20 mg PO ONCE 09/09/24 09/09/24 Unknown History Allergies Allergy/AdvReac Type Severity Reaction Status Date / Time No Known Allergies Allergy Verified 09/09/24 20:50 Review of Systems Review of Systems: All systems reviewed & are unremarkable except as noted in HPI and below PMFSH Past Medical History Medical History Arthritis Hypertension Hypercholesteremia Patient denies significant medical history Surgical History Surgical History H/O right knee surgery Family History Family History Mother Family history of lung cancer Other Diabetes mellitus Family history of cardiovascular disease Hypertension Social History Social History Smoking status: Never smoker Alcohol intake: current Drinks per week: 1 Substance use: never Living arrangements: with family Occupation/Education: retired Gender identity (if verbalized by the patient): Male Spiritual care concerns: No Exam Narrative: EXAMINATION OF ORGAN SYSTEMS/BODY AREAS: Constitutional: Vital signs per nursing GENERAL:[No acute distress, non-toxic appearing.] Very well-appearing, sitting in bed. HEAD: Normal with no signs of head trauma. EYES: EOMI, conjunctiva normal, PERRL ENT: Hearing grossly intact LUNGS: Nonlabored breathing. HEART: [Regular rate and rhythm] ABD: [Soft], [nontender to palpation] EXT: Normal range of motion SKIN: [No rashes or lesions.] NEURO: [Alert and oriented x 3. No gross focal sensory or strength deficits.] Ambulating with normal steady gait, speaking with clear speech. PSYCH: Normal affect Course Vital Signs Vital signs: Vital Signs Temperature 98.5 F 09/09/24 20:54 Pulse Rate 91 09/09/24 20:54 Respiratory Rate 19 09/09/24 20:54 Blood Pressure 182/115 H 09/09/24 20:54 Pulse Oximetry 94 09/09/24 20:54 Oxygen Delivery Room Air 09/09/24 20:54 Temperature 97.8 F 09/10/24 03:31 Pulse Rate 82 09/10/24 03:31 Respiratory Rate 16 09/10/24 03:31 Blood Pressure 177/95 H 09/10/24 03:31 Pulse Oximetry 97 09/10/24 03:31 Oxygen Delivery Room Air 09/09/24 20:54 MDM - Dizziness MDM Narrative Medical decision making narrative: Patient reportedly sent in for hypertension(?), however he is unable to tell me what medication he is supposed to be taking. EKG on my independent interpretation showing what appears to be atrial fibrillation versus possible lots of PACs/PVCs, rate 74, QRS 136, QTC 486, no significant ST elevations or depressions. I called his [facility] relief manager Dr. Rosales's office and spoke with his fellow Dr. Harvey to obtain medication list and he is on atorvastatin 80mg, vit D, plavix 75mg, colchicine 0.6mg BID (started 1 wk ago), flexeril 5mg BID, doxazosin 4mg, HCTZ 50mg, lisinopril 20mg. I did discuss with him that our EKG here is showing possible atrial fibrillation and he has never been diagnosed with this before per the relief manager, they will follow up in clinic. When I brought up the lisinopril, patient states that he has stopped taking it because he thought it made his blood pressure go low, so I do suspect this may be why his pressure is high today. He does have a UTI so I will start him on ceftriaxone. Labs to seem consistent with dehydration given the elevated creatinine and BUN so I will give a L of IV fluids. CT abdomen/pelvis obtained given the report of the ongoing diarrhea and UTI. CT on radiology interpretation no obvious abnormality. I discussed findings with patient, they are very happy to go home at this time. He has no complaints other than feeling cold. Prescriptions for antibiotics provided as establish a follow-up with his relief manager given the possible new atrial fibrillation and the hypertension, he has an appointment already tomorrow, I have let him and know they can always return to ER for any further issues and they are agreeable to this plan. Lab Data 09/09/24 23:16 09/09/24 23:16 Labs: Lab Results 09/09/24 09/09/24 Range/Units 22:19 23:16 WBC 8.4 (4.5-10.0) K/mm3 RBC 4.88 (4.6-6.20) M/mm3 Hgb 15.3 (14.0-18.0) g/dL Hct 45.7 (42.0-52.0) % MCV 93.6 (80-100) fl MCH 31.4 (26-34) pg MCHC 33.5 (32-36) g/dl RDW 13.3 (11.5-14.5) % Plt Count 285 (150-375) k/mm3 MPV 9.2 (7.4-10.4) fl Immature Gran % (Auto) 0.1 (0-0.5) % Neut % (Auto) 63.8 (45.5-73.1) % Lymph % (Auto) 26.1 (18.3-44.2) % Angelina % (Auto) 8.5 (2.6-8.5) % Eos % (Auto) 1.1 (0-4.4) % Baso % (Auto) 0.4 (0.2-1.2) % Lymph # (Auto) 2.20 (0.9-3.2) K/mm3 Angelina # (Auto) 0.7 H (0.1-0.6) K/mm3 Eos # (Auto) 0.1 (0-0.3) K/mm3 Baso # (Auto) 0.0 (0.0-0.1) K/mm3 Abs Immat Gran (auto) 0.01 (0.00-0.031) K/mm3 Absolute Neuts (auto) 5.4 (1.3-6.7) K/mm3 Absolute Nucleated RBC 0.000 (0.0-0.012) K/mm3 Nucleated RBC % 0.0 (0.0-0.2) % Sodium 140 (137-145) mmol/L Potassium 3.4 (3.4-5.0) mmol/L Chloride 105 (98-107) mmol/L Carbon Dioxide 26 (22-30) mmol/L Anion Gap 9 (4-12) mmol/L BUN 30 H D (9-20) mg/dL Creatinine 1.34 H (0.7-1.3) mg/dL Estim Creat Clear Calc 45 ml/min Estimated GFR 52 L (59 - ) Glucose 103 (65-110) mg/dL Calcium 9.0 (8.4-10.2) mg/dL Total Bilirubin 0.8 (0.2-1.3) mg/dL AST 29 (17-59) U/L ALT 13 (6-50) U/L Alkaline Phosphatase 91 (38-126) U/L Troponin I 0.017 (0.000-0.034) ng/mL Total Protein 7.0 (6.3-8.2) g/dL Albumin 4.3 (3.5-5.1) g/dL Urine Color Yellow (Yellow) Urine Appearance Cloudy H (Clear) Urine pH 7.0 (5.0-9.0) Ur Specific [place] 1.020 (1.001-1.035) Urine Protein 2+ H (Negative) mg/dL Urine Glucose (UA) Negative (Negative) mg/dL Urine Ketones Trace H (Negative) mg/dL Ur Blood (Man) Trace (Negative) Urine Nitrate Negative (Negative) Urine Bilirubin Negative (Negative) Urine Urobilinogen 1.0 (<2.0) mg/dL Leukocyte Esterase Rfl 3+ H (Negative) MORAIMA/UL Urine RBC 0-2 (0-2) /hpf Urine WBC >100 H (0-3) /hpf Ur Squamous Epith Cells None seen (Few) /hpf Urine Bacteria 1+ H /hpf Urine Casts 6-10 Discharge Plan Discharge Clinical Impression: Acute dehydration, Chronic hypertension, Acute UTI Patient Disposition: Home Condition: Stable Instructions: Antibiotic Form, Urinary Tract Infection in Men (ED), Chronic Hypertension (ED) Additional Instructions: Make sure you are taking all of your medications. Start the antibiotics as prescribed, and call your relief manager's office tomorrow for close follow-up for your heart rhythm and blood pressure. You can always return to the emergency room for any further issues. Patient Language: Bengali Prescriptions: New nitrofurantoin monohyd/m-cryst [Macrobid] 100 mg capsule 100 mg PO Q12H 7 Days Qty: 14 0RF Rx Instructions: must administer with a meal/food No Action lisinopril 20 mg tablet 20 mg PO ONCE colchicine 0.6 mg tablet 0.6 mg PO BID cyclobenzaprine 5 mg tablet 5 mg PO TID PRN (Reason: muscle spasm) clopidogrel 75 mg Tablet 75 mg PO DAILY potassium chloride 20 mEq tablet extended release 20 meq PO BID Qty: 7 0RF hydrochlorothiazide 50 mg tablet 50 mg PO DAILY doxazosin 8 mg tablet 8 mg PO DAILY atorvastatin 80 mg tablet 80 mg PO DAILY Follow-up/Referrals: Michelle,Michael Michelle MD [Primary Care Provider] - "
--- OUTSIDE RECORDS SUMMARY | 2024-09-09 20:52 | XMS_ITS | Encounter Summary ---
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 Name Role Phone Michael Martinez MD Primary Care Provider [phone] Jaquan Fitzgerald SUPERVISOR RESPIRATORY Unavailable [phone] Encounter Details Date Type Department Care Team (Latest Contact Info) Description 09/09/2024 Telephone Cardiology Candice Eubanks MD [address] [place] [address] Social History Tobacco Use Types Packs/Day Years Used Date Smoking Tobacco: Never Passive Smoke Exposure: Past Smokeless Tobacco: Never Alcohol Use Standard Drinks/Week [...] on file Legal Sex Male 1:33 AM 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 Returned the call, patient states he feels clammy, cold, queasy, lightheaded with chills, tremors and loose bowel movements. Denies chest pain. He has not been feeling well throughout the day, his took his blood pressure which was 205/150 (not 250/208). I recommended further evaluation in the Emergency Department. The patient states he will call his son and have him drive him to [facility]. 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
--- OUTSIDE RECORDS SUMMARY | 2024-09-09 20:52 | XMS_ITS | Continuity of Care Document ---
Author Organization [facility] Address [address] [place] [address] Phone Care Team Providers Care Berry Grower Name Role Phone Administrative, Provider Unavailable Unavail able Allergies, Adverse Reactions, Alerts Substance Reaction Status Criticality No Known Drug Allergies Active No I nformation Medications Medication Instructions Dosage Effective Dates (start - stop) Status Comments DILTIAZEM 24HR ER (unknown strength) take 1 capsule by oral route every day Not Available - No Longer Active PLAVIX (unknown strength) take 1 tablet by oral route every day Not Available - No Longer Active HYDROCHLOROTHIAZIDE (unknown strength) take 1 capsule by oral route every day Not Available - No Longer Active CARDURA (unknown strength) take 1 tablet by oral route every day Not Available - No Longer Active Procedures Procedure Date Work/Medical Disability Exam [employer] 2013 Advance Directives Directive Yes / No Effective Date File Name No Information Encounters Encounter Description Practice Location Reason(s) For Visit Diagnoses Date Provider Providers Copied on Encounter [facility], [address], [id number], [place] tel:[phone] Payvment No Information Administrati ve Provider. [address], [address], [place], [place], [id number], [place]. tel:[phone] [facility], [address] [place] [address], [place], [place], [id number], [place] tel:[phone] [facility] Localised, primary osteoarthritis of the lower leg 4 Administrati ve Provider. [address], [address], [place], [place], [id number], [place]. tel:[phone] Referring Provider: Dale Torres, [address], [place], [address] . tel:[phone] Family History Family Member Type Diagnosis Age At Onset Mother Problem (finding) hypertension Mother Problem (finding) Heart disease Payers Payer name Insurance type Covered alliance party ID Karlkyle catiejaime(s) [facility] [id number] Social History Type Description Quantity Date Captured Comments Alcohol Use Details Caffeine Use Details Unknown Tobacco Use Status No Information Smoking Status No Information Sex Male Chief Complaint And Reason For Visit No Information Reason For Referral Reason For Referral No Information History Of Present Illness Encounter Date Complaint History Of Prese nt Illness No Information Functional Status Date Functional Assessmen t No Information Medications Administered Medication Instructions Dosage Effective Dates (start - stop) Status Comments DILTIAZEM 24HR ER (unknown strength) take 1 capsule by oral route every day Not Available - No Longer Active PLAVIX (unknown strength) take 1 tablet by oral route every day Not Available - No Longer Active HYDROCHLOROTHIAZIDE (unknown strength) take 1 capsule by oral route every day Not Available - No Longer Active CARDURA (unknown strength) take 1 tablet by oral route every day Not Available - No Longer Active Instructions Date Instruction Additional Infor mation No Information Assessments Type Assessment Date No Information Patient Care Teams Name Effective Dates (start - stop) Status Members No Information
[2024-09-09 20:54] VITALS: BP 182/115; PULSE 91; RESP 19; TEMP 36.9; O2SAT 94
[2024-09-09 22:03] VITALS: BP 190/103; PULSE 81; RESP 16; O2SAT 99
--- NOTE | 2024-09-09 22:15 | ECG_ITS ---
Test Date: 2024-09-09 22:19:07 Measurements Intervals [place] Rate: 74 P: 0 TN: 0 QRS: -57 QRSD: 136 T: 56 QT: 436 QTc: 486 Interpretive Statements ATRIAL FIBRILLATION WITH ABERRANT CONDUCTION OR VENTRICULAR PREMATURE COMPLEXES MARKED LEFT AXIS DEVIATION [QRS AXIS < -30] RIGHT BUNDLE BRANCH BLOCK [120+ ms QRS DURATION, UPRIGHT V1, 40+ ms S IN I/aVL/V4/V5/V6] No previous ECG available for comparison Electronically Signed On 09-10-2024 13:32:00 CDT by Rob Swanson M.D.
--- OUTSIDE RECORDS SUMMARY | 2024-09-09 22:44 | XMS_ITS | Clinical Summary ---
Author Organization [facility] Address [address] [place] [address] Care Team Providers Care Dietitian Name Role Phone Michael Martinez MD Primary Care Provider [phone] Jaquan Fitzgerald BED AND BREAKFAST INNKEEPER Unavailable Allergies No known active allergies Medications cholecalcifero [...] 06/09/2023 Assessment & Plan (06/09/2023 10:07 AM APPLICATION SOFTWARE DEVELOPER): Syncopal episode in March of 2023 that [...] visit. Assessment & Plan (06/09/2023 10:05 AM APPLICATION SOFTWARE DEVELOPER): 48 hour Holter obtained in March of [...] 06/09/2023 Assessment & Plan (06/09/2023 10:20 AM APPLICATION SOFTWARE DEVELOPER): Reports daytime somnolence. reports significant snoring and suspected apneic episodes. Will send referral for sleep medicine. Cervical stenosis of spine 04/27/2023 History of TIA (transient ischemic attack) 08/31 Osteoarthritis 08/30/2022 Primary osteoarthritis of right knee 08/08/2022 Assessment & Plan (08/08/2022 1:01 PM CDT): Ortho referral Pre-operative cardiovascular examination 022 Overview (11/03/2021): Added automatically from request for surgery [id number] Assessment & Plan (06/09/2023 10:17 AM APPLICATION SOFTWARE DEVELOPER): Mr. Banuelos is scheduled for a C [...] a 6% risk for 30 day , IA or cardiac arrest. I do not think [...] today Assessment & Plan (05/09/2022 1:28 PM APPLICATION SOFTWARE DEVELOPER): Labs once better Assessment & Plan (08/10/2020 [...] target. Assessment & Plan (06/09/2023 9:55 AM APPLICATION SOFTWARE DEVELOPER): Stable today in clinic. Continue doxazosin, HCTZ [...] well. Assessment & Plan (06/09/2023 10:18 AM APPLICATION SOFTWARE DEVELOPER): LDL goal of < 70 in light [...] pain. Assessment & Plan (06/09/2023 9:54 AM APPLICATION SOFTWARE DEVELOPER): History of LHC in 2006 with LAD [...] 08/08/2022 Assessment & Plan (05/09/2022 1:26 PM APPLICATION SOFTWARE DEVELOPER): Augmentin BID x 10d. Pneumonia due to infectious organism 10/06/2020 05/09/2022 Assessment & Plan (10/06/2020 11:59 AM CDT): Check follow-up chest x-ray. Will add pneumococcal vaccine today. Encounters Date Type Department Care Team Description 09/09/2024 Telephone Cardiology Candice Eubanks MD 09/02/2024 Telephone [facility] [address] [place] [phone] Michael Martinez MD gout 07/03/2024 Results Follow-Up [facility] [address] [place] [address] for [place] [phone] Tonya Sibley NP XR Foot Left 3 or More Views 07/03/2024 Results Follow-Up [facility] [address] [place] [address] for [place] [phone] Tonya Sibley NP Uric acid, Basic metabolic panel, CBC with auto differential, Additional followed-up results: 2 07/02/2024 5:15 PM CDT Lab [facility] [address] [place] [phone] 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, unspecified cause 07/02/2024 2:48 PM CDT - 07/02/2024 11:59 PM CDT Hospital Encounter [facility] [address] [place] [phone] Left foot pain Discharge Disposition: Discharge to home or self care 07/02/2024 1:45 PM CDT Office Visit [facility] [address] [facility] [address] [place] [address] Tonya Sibley NP Left foot pain (Primary Dx); 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, unspecified cause; Essential hypertension 06/25/2024 12:45 PM APPLICATION SOFTWARE DEVELOPER Office Visit [facility] [address] [facility] 8th [place] [address] [place] [address] Yasmani Rosales MD PhD Atherosclerosis of coronary artery of benton heart without angina pectoris, unspecified vessel or lesion type (Primary Dx); Essential hypertension; Hypercholesterolemia; Right bundle branch block (RBBB); PAC (premature atrial contraction); Prediabetes; History of TIA (transient ischemic attack) 06/24/2024 Telephone [facility] [address] [place] [phone] Michael Martinez MD Gout 06/23/2024 Results Follow-Up [facility] [address] [place] [phone] Shoulder Left WO Contrast, CT Chest WO Contrast 06/20/2024 2:22 PM APPLICATION SOFTWARE DEVELOPER - 06/20/2024 11:59 PM APPLICATION SOFTWARE DEVELOPER Hospital Encounter [facility] [address] [place] [phone] Michael Martinez MD Closed fracture of multiple ribs, unspecified laterality, initial encounter; Left supracondylar humerus fracture, closed, initial encounter Discharge Disposition: Discharge to home or self care 06/19/2024 Telephone [facility] [address] [place] [phone] Michael Martinez MD ? left humerus fracture and rib fractures 06/18/2024 Telephone [facility] [address] [place] [phone] Michael Martinez MD 06/12/2024 [facility] [address] [facility] [address] [place] [address] Michael Martinez MD sinus congestion [...] on file Legal Sex Male 1:33 AM APPLICATION SOFTWARE DEVELOPER Gender Identity Not on file Sexual Orientation Straight 06/26/2020 8: 12 PM APPLICATION SOFTWARE DEVELOPER Obstetrics History Last Filed Vital Signs Vital Sign Reading Time Taken Comments Blood Pressure 110/68 07/02/2024 1:33 PM CDT Pulse 78 07/02/2024 1:33 PM CDT Temperature 37.1 C (98.8 F) 05/03/2024 12:42 PM APPLICATION SOFTWARE DEVELOPER Respiratory Rate 20 05/03/2024 12:42 PM APPLICATION SOFTWARE DEVELOPER Oxygen Saturation 95% 06/25/2024 12:49 PM APPLICATION SOFTWARE DEVELOPER Inhaled Oxygen Concentration - - Weight 90.3 [...] 08/08/2022, 08/10/2020 Medical Devices Implanted Type Area Basketball Player Device Identifier Shelf Expiration Date Model / Serial / Lot Depuy Orthopaedics Inc [id number] Mentum 59mm Press Fit Femoral Proximal Cup Acetabular - [id number] Implanted:Qty: 1 on 02/11/2021 by Richard Hickman MD at [facility] Left: Hip Depuy Orthopaedics Inc 12/23/2023 [id number] / / Depuy Orthopaedics Inc [id number] 59mm 28mm Femoral Proximal Liner Acetabular - [id number] Implanted:Qty: 1 on 02/11/2021 by Richard Hickman MD at [facility] Left: Hip Depuy Orthopaedics Inc 01/22/2024 [id number] / / Depuy Orthopaedics Inc [id number] Articul/Rodney 28mm Cementless Hip +1.5mm 12/14 Taper Head Femoral Latex Free - [id number] Implanted:Qty: 1 on 02/11/2021 by Richard Hickman MD at [facility] Left: Hip Depuy Orthopaedics Inc 11/21/2025 [id number] / / Depuy Orthopaedics Inc [id number] Actis Collar Hip 7 High Offset Stem Femoral - [id number] Implanted:Qty: 1 on 02/11/2021 by Richard Hickman MD at [facility] Left: Hip Depuy Orthopaedics Inc 02/21/2030 [id number] / / Depuy Orthopaedics Inc Insert Attune Right Medial Stabilized Size 8 5mm [id number] - [id number] Implanted:Qty: 1 on 08/30/2022 by Richard Hickman MD at [facility] Right: Knee Depuy Orthopaedics Inc [id number] 07/22/2030 [id number] / / Description:Implant pause pe rformed Depuy Orthopaedics Inc Attune Cruciate Retain Cementless Knee Right 8 Component Femoral [id number] - [id number] Implanted:Qty: 1 on 08/30/2022 by Richard Hickman MD at [facility] Right: Knee Depuy Orthopaedics Inc [id number] 06/21/2032 [id number] / / Description:Implant pause pe rformed Depuy Orthopaedics Inc Attune Fb Tib Base Sz 10 Por [id number] - [id number] Implanted:Qty: 1 on 08/30/2022 by Richard Hickman MD at [facility] Right: Knee Depuy Orthopaedics Inc [id number] 06/21/2032 [id number] / / Description:Implant pause pe rformed Depuy Synthes Spine Screw Spinal Set Posterior Cervical Solid Symphony Titanium [id number] - [id number] Implanted:Qty: 8 on 08/08/2023 by Jarad Moreau MD at [facility] N/A: Spine Cervical Depuy Synthes Spine [id number] / / Depuy Synthes Spine 4mm 65mm Lordosis Gaurav Spinal Titanium [id number] - [id number] Implanted:Qty: 2 on 08/08/2023 by Jarad Moreau MD at [facility] N/A: Spine Cervical Depuy Synthes Spine [id number] / / Depuy Synthes Spine Graft Bone Filler Sm Inj Fibergraft Bg Gps 4cc Putty [id number] - [id number] Implanted:Qty: 1 on 08/08/2023 by Jarad Moreau MD at [facility] N/A: Spine Cervical Depuy Synthes Spine [id number] / / Depuy Spine Screw Bone 4.0 Cannulated Red 4.0x14mm [id number] - [id number] Implanted:Qty: 4 on 08/08/2023 by Jarad Moreau MD at [facility] N/A: Spine Cervical Depuy Spine [id number] / / Depuy Synthes Spine Graft Bone Filler Sm Inj Fibergraft Bg Gps 4cc Putty [id number] - [id number] Implanted:Qty: 1 on 08/08/2023 by Jarad Moreau MD at [facility] N/A: Spine Cervical Depuy Synthes Spine [id number] 03/23/2026 [id number] / / [id number] Depuy Spine Screw Bone 4.0 Cannulated Red 4.0x14mm [id number] - [id number] Implanted:Qty: 4 on 08/08/2023 by Jarad Moreau MD at [facility] N/A: Spine Cervical Depuy Spine [id number] / / Procedures Procedure Name Priority Date/Time [...] Read Routine (OP Routine) 06/20/2024 2:52 PM APPLICATION SOFTWARE DEVELOPER Left supracondylar humerus fracture, closed, initial encounter CT SHOULDER LEFT WO CONTRAST Schedule Routine, Read Routine (OP Routine) 06/20/2024 2:52 PM APPLICATION SOFTWARE DEVELOPER Closed fracture of multiple ribs, unspecified laterality, [...] Nolan Sunshine Womack, M.D. us Tonya Sibley BED AND BREAKFAST INNKEEPER IMG XR PROCEDURES Final Resul t * (ABNORMAL) eGFR (07/02/2024 2:38 PM CDT) Pathologist [facility] eGFR 47(L) >=60 mL/min/1. 73 m2 Comment: [...] NP LAB BLOOD ORDERABLES Final Re sult [facility] Department of Laboratories [place], [place] [id number] * (ABNORMAL) Differential, auto (07/02/2024 2:38 PM CDT) Pathologist [facility] Neutrophil abs 6.6(H) 1.5 - 6.5 K/cumm Imm gran abs 0.0 0.0 - 0.1 K/cumm [facility] Lymphocyte abs 2.4 0.8 - 3.3 K/cumm [facility] Monocyte abs 0.7 0.2 - 0.8 K/cumm [facility] Eosinophil abs 0.3 0.0 - 0.5 K/cumm [facility] Basophil abs 0.0 0.0 - 0.1 K/cumm [facility] Neutrophil pct 65.8 % [facility] Comment: Interpretive Data Percent cell count reference ranges are not reported, since discordance with absolute values may lead to misinterpretation of CBC data. Current Interpretive Data was last revised on 2017. Imm gran pct 0.4 % [facility] Comment: Interpretive Data Percent cell count reference ranges are not reported, since discordance with absolute values may lead to misinterpretation of CBC data. Current Interpretive Data was last revised on 2017. Lymphocyte pct 24.0 % [facility] Comment: Interpretive Data Percent cell count reference ranges are not reported, since discordance with absolute values may lead to misinterpretation of CBC data. Current Interpretive Data was last revised on 2017. Monocyte pct 6.5 % [facility] Comment: Interpretive Data Percent cell count reference ranges are not reported, since discordance with absolute values may lead to misinterpretation of CBC data. Current Interpretive Data was last revised on 2017. Eosinophil pct 3.0 % [facility] Comment: Interpretive Data Percent cell count reference ranges are not reported, since discordance with absolute values may lead to misinterpretation of CBC data. Current Interpretive Data was last revised on 2017. Basophil pct 0.3 % [facility] Comment: Interpretive Data Percent cell count reference ranges are not reported, since discordance with absolute values may lead to misinterpretation of CBC data. Current Interpretive Data was last revised on 2017. Blood 07/02/2024 2:38 PM CDT 07/02/2024 3:12 PM CDT us Tonya Sibley BED AND BREAKFAST INNKEEPER LAB BLOOD ORDERABLES Final Re sult [facility] Department [place] [address] * (ABNORMAL) CBC with auto differential (07/02/2024 2:38 PM CDT) WBC 10.0(H) 3.8 - 9.9 K/cumm Hgb 14.0 13.0 - 17.5 g/dL [facility] Hct 41.1 38.9 - 50.3 % [facility] Plt 332 150 - 400 K/cumm [facility] MPV 9.1 9.1 - 12.3 fL [facility] RBC 4.42 4.30 - 5.80 M/cumm [facility] MCV 93.0 81.3 - 96.4 fL [facility] MCH 31.7 27.1 - 33.3 pg [facility] MCHC 34.1 32.3 - 35.7 g/dL [facility] RDW CV 13.4 11.1 - 14.9 % [facility] RDW SD 46.2 35.7 - 48.1 fL [facility] NRBC abs 0.00 0.00 - 0.01 K/cumm [facility] Blood 07/02/2024 2:38 PM CDT 07/02/2024 3:12 PM CDT Tonya Sibley BED AND BREAKFAST INNKEEPER LAB BLOOD ORDERABLES Final Re sult Performing Organization Address City/[facility]/ZIP Co de Phone Number [facility] [place] [address] * (ABNORMAL) Uric acid (07/02/2024 2:38 PM CDT) Pathologist [facility] Uric acid 9.3(H) 3.0 - 8.0 mg/dL Blood 07/02/2024 2:38 PM CDT 07/02/2024 3:12 PM CDT Tonya Sibley BED AND BREAKFAST INNKEEPER LAB BLOOD ORDERABLES Final Re sult [facility] [place] [address] * (ABNORMAL) Basic metabolic panel (07/02/2024 2:38 PM CDT) Pathologist [facility] Sodium 142 135 - 145 mmol/L Potassium, pl 4.3 3.3 - 4.9 mmol/L [facility] Chloride 105 97 - 110 mmol/L [facility] CO2 28 22 - 32 mmol/L [facility] Anion gap 9 2 - 15 mmol/L [facility] BUN 31(H) 6 - 25 mg/dL [facility] Creatinine 1.57(H) 0.80 - 1.30 mg/dL [facility] Glucose 102 70 - 199 mg/dL [facility] Comment: Interpretive Data Fasting glucose >/= 126 [...] 2022. Calcium 8.9 8.5 - 10.3 mg/dL [facility] Blood 07/02/2024 2:38 PM CDT 07/02/2024 3:12 PM CDT us Tonya Sibley NP LAB BLOOD ORDERABLES Final Re sult [facility] Department [place] [address] * CT Shoulder Left WO Contrast (06/20/2024 2:52 PM APPLICATION SOFTWARE DEVELOPER) Anatomical Region Laterality Modality Upper Extremities Left Computed Tomog shannon 06/20/2024 3:30 PM APPLICATION SOFTWARE DEVELOPER Impressions 06/20/2024 3:47 PM APPLICATION SOFTWARE DEVELOPER 1. No acute f [id number]|2024-09-09 22:44:00|2024-09-09 22:43:00|XMS_ITS|BKG DAEMON|External Medical Summaries|[id number]|" Referral Summary Created on: September 09, 2024 Jony Banuelos : 1950 Sex: Male Author Organization [facility] Address [address] [place] [address] Care Team Providers Care Dietitian Name Role Phone Michael Martinez MD Primary Care Provider [phone] Jaquan Fitzgerald BED AND BREAKFAST INNKEEPER Unavailable [phone] Encounters Date Type Department Care Team Description 09/09/2024 Telephone Cardiology Candice Eubanks MD 09/02/2024 Telephone [facility] [address] [facility] [address] [place] [address] Michael Martinez MD gout 07/03/2024 Results Follow-Up [facility] [address] [place], [place] [address] [place] [address] Tonya Sibley NP XR Foot Left 3 or More Views 07/03/2024 Results Follow-Up [facility] [address] [facility] [address] [place] [address] Tonya Sibley NP Uric acid, Basic metabolic panel, CBC with auto differential, Additional followed-up results: 2 07/02/2024 2:48 PM CDT - 07/02/2024 11:59 PM CDT Hospital Encounter [facility] [address] [place] [address] Left foot pain Discharge Disposition: Discharge to home or self care 07/02/2024 5:15 PM CDT Lab [facility] ([facility]) [address] [place], [place] [phone] 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, unspecified cause 07/02/2024 1:45 PM CDT Office Visit [facility] [address] [place] [phone] Tonya Sibley NP Left foot pain (Primary Dx); 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, unspecified cause; Essential hypertension 06/25/2024 12:45 PM APPLICATION SOFTWARE DEVELOPER Office Visit [facility] [address] [place] [address] 8th [address] [place] [phone] Yasmani Rosales MD PhD Atherosclerosis of coronary artery of [place] heart without angina pectoris, unspecified vessel or lesion type (Primary Dx); Essential hypertension; Hypercholesterolemia; Right bundle branch block (RBBB); PAC (premature atrial contraction); Prediabetes; History of TIA (transient ischemic attack) 06/24/2024 Telephone [facility] [address] [place] [phone] Michael Martinez MD Gout 06/23/2024 Results Follow-Up [facility] [address] [place] [phone] Shoulder Left WO Contrast, CT Chest WO Contrast 06/20/2024 2:22 PM APPLICATION SOFTWARE DEVELOPER - 06/20/2024 11:59 PM APPLICATION SOFTWARE DEVELOPER Hospital Encounter [facility] [address] [place] [address] Michael Martinez MD Closed fracture of multiple ribs, unspecified laterality, initial encounter; Left supracondylar humerus fracture, closed, initial encounter Discharge Disposition: Discharge to home or self care 06/19/2024 Telephone [facility] [address] [place] [phone] Michael Martinez MD ? left humerus fracture and rib fractures 06/18/2024 [facility] [facility] [address] [place] [phone] Michael Martinez MD 06/12/2024 [facility] [address] [place], [place] [address] [place] [phone] Michael Martinez MD sinus congestion from Last [...] 06/09/2023 Assessment & Plan (06/09/2023 10:07 AM APPLICATION SOFTWARE DEVELOPER): Syncopal episode in March of 2023 that [...] visit. Assessment & Plan (06/09/2023 10:05 AM APPLICATION SOFTWARE DEVELOPER): 48 hour Holter obtained in March of [...] 06/09/2023 Assessment & Plan (06/09/2023 10:20 AM APPLICATION SOFTWARE DEVELOPER): Reports daytime somnolence. reports significant snoring and suspected apneic episodes. Will send referral for sleep medicine. Cervical stenosis of spine 04/27/2023 History of TIA (transient ischemic attack) 08/31 Osteoarthritis 08/30/2022 Primary osteoarthritis of right knee 08/08/2022 Assessment & Plan (08/08/2022 1:01 PM CDT): Ortho referral Pre-operative cardiovascular examination 022 Overview (11/03/2021): Added automatically from request for surgery [id number] Assessment & Plan (06/09/2023 10:17 AM APPLICATION SOFTWARE DEVELOPER): Mr. Banuelos is scheduled for a C [...] a 6% risk for 30 day , IA or cardiac arrest. I do not think [...] today Assessment & Plan (05/09/2022 1:28 PM APPLICATION SOFTWARE DEVELOPER): Labs once better Assessment & Plan (08/10/2020 [...] target. Assessment & Plan (06/09/2023 9:55 AM APPLICATION SOFTWARE DEVELOPER): Stable today in clinic. Continue doxazosin, HCTZ [...] well. Assessment & Plan (06/09/2023 10:18 AM APPLICATION SOFTWARE DEVELOPER): LDL goal of < 70 in light [...] pain. Assessment & Plan (06/09/2023 9:54 AM APPLICATION SOFTWARE DEVELOPER): History of LHC in 2006 with LAD [...] 08/08/2022 Assessment & Plan (05/09/2022 1:26 PM APPLICATION SOFTWARE DEVELOPER): Augmentin BID x 10d. Pneumonia due to [...] on file Legal Sex Male 1:33 AM APPLICATION SOFTWARE DEVELOPER Gender Identity Not on file Sexual Orientation Straight 06/26/2020 8: 12 PM APPLICATION SOFTWARE DEVELOPER Last Filed Vital Signs Vital Sign Reading Time Taken Comments Blood Pressure 110/68 07/02/2024 1:33 PM CDT Pulse 78 07/02/2024 1:33 PM CDT Temperature 37.1 C (98.8 F) 05/03/2024 12:42 PM APPLICATION SOFTWARE DEVELOPER Respiratory Rate 20 05/03/2024 12:42 PM APPLICATION SOFTWARE DEVELOPER Oxygen Saturation 95% 06/25/2024 12:49 PM APPLICATION SOFTWARE DEVELOPER Inhaled Oxygen Concentration - - Weight 90.3 kg (199 lb) 07/02/2024 1:33 PM CDT Height 175.3 cm (5' 9 ) 07/02/2024 1:33 PM CDT Body Mass Index 29.39 07/02/2024 1:33 PM CDT Plan of Treatment Scheduled Procedures Name Priority Associated Diagnoses Date/Ti me COLONOSCOPY Encounter for screening colonoscopy Medical Devices Implanted Type Area Basketball Player Device Identifier Shelf Expiration Date Model / Serial / Lot DepShareDesk Orthopaedics Inc [id number] Mentum 59mm Press Fit Femoral Proximal Cup Acetabular - [id number] Implanted:Qty: 1 on 02/11/2021 by Richard Hickman MD at [facility] Left: Hip Depuy Orthopaed[employer] Inc 12/23/2023 [id number] / / Depuy Orthopaed[employer] Inc [id number] 59mm 28mm Femoral Proximal Liner Acetabular - [id number] Implanted:Qty: 1 on 02/11/2021 by Richard Hickman MD at [facility] Left: Hip Depuy Orthopa[employer] Inc 01/22/2024 [id number] / / Depuy Orthopaed[employer] Inc [id number] Articul/Rodney 28mm Cementless Hip +1.5mm 12/14 Taper Head Femoral Latex Free - [id number] Implanted:Qty: 1 on 02/11/2021 by Richard Hickman MD at [facility] Left: Hip Depuy Orthopa[employer] Inc 11/21/2025 [id number] / / Depuy Orthopaed[employer] Inc [id number] Actis Collar Hip 7 High Offset Stem Femoral - [id number] Implanted:Qty: 1 on 02/11/2021 by Richard Hickman MD at [facility] Left: Hip Depuy Orthopa[employer] Inc 02/21/2030 [id number] / / Depuy Orthopaed[employer] Inc Insert Attune Right Medial Stabilized Size 8 5mm [id number] - [id number] Implanted:Qty: 1 on 08/30/2022 by Richard Hickman MD at [facility] Right: Knee Depuy Orthopaed[employer] Inc [id number] 07/22/2030 [id number] / / Description:Implant pause pe rformed Depuy Orthopaed[employer] Inc Attune Cruciate Retain Cementless Knee Right 8 Component Femoral [id number] - [id number] Implanted:Qty: 1 on 08/30/2022 by Richard Hickman MD at [facility] Right: Knee Depuy Orthopa[employer] Inc [id number] 06/21/2032 [id number] / / Description:Implant pause pe rformed Depuy Orthopaed[employer] Inc Attune Fb Tib Base Sz 10 Por [id number] - [id number] Implanted:Qty: 1 on 08/30/2022 by Richard Hickman MD at [facility] Right: Knee Depuy Orth[employer] Inc [id number] 06/21/2032 [id number] / / Description:Implant pause pe rformed Depuy Synthes Spine Screw Spinal Set Posterior Cervical Solid Symphony Titanium [id number] - [id number] Implanted:Qty: 8 on 08/08/2023 by Jarad Moreau MD at [facility] N/A: Spine Cervical Depuy Synthes Spine [id number] / / Depuy Synthes Spine 4mm 65mm Lordosis Gaurav Spinal Titanium [id number] - [id number] Implanted:Qty: 2 on 08/08/2023 by Jarad Moreau MD at [facility] N/A: Spine Cervical Depuy Synthes Spine [id number] / / Depuy Synthes Spine Graft Bone Filler Sm Inj Fibergraft Bg Gps 4cc Putty [id number] - [id number] Implanted:Qty: 1 on 08/08/2023 by Jarad Moreau MD at [facility] N/A: Spine Cervical Depuy Synthes Spine [id number] / / Depuy Spine Screw Bone 4.0 Cannulated Red 4.0x14mm [id number] - [id number] Implanted:Qty: 4 on 08/08/2023 by Jarad Moreau MD at [facility] N/A: Spine Cervical Depuy Spine [id number] / / Depuy Synthes Spine Graft Bone Filler Sm Inj Fibergraft Bg Gps 4cc Putty [id number] - [id number] Implanted:Qty: 1 on 08/08/2023 by Jarad Moreau MD at [facility] N/A: Spine Cervical Depuy Synthes Spine [id number] 03/23/2026 [id number] / / [id number] Depuy Spine Screw Bone 4.0 Cannulated Red 4.0x14mm [id number] - [id number] Implanted:Qty: 4 on 08/08/2023 by Jarad Moreau MD at [facility] N/A: Spine Cervical Depuy Spine [id number] / / Procedures Procedure Name Priority Date/Time [...] Read Routine (OP Routine) 06/20/2024 2:52 PM APPLICATION SOFTWARE DEVELOPER Left supracondylar humerus fracture, closed, initial encounter CT SHOULDER LEFT WO CONTRAST Schedule Routine, Read Routine (OP Routine) 06/20/2024 2:52 PM APPLICATION SOFTWARE DEVELOPER Closed fracture of multiple ribs, unspecified laterality, [...] by: Americo Womack M.D. us Tonya Sibley BED AND BREAKFAST INNKEEPER IMG XR PROCEDURES Final Resul t * [...] LAB BLOOD ORDERABLES Final Re sult [facility] Department [place] [address] * (ABNORMAL) Differential, auto (07/02/2024 2:38 PM CDT) Neutrophil abs 6.6(H) 1.5 - 6.5 K/cumm Imm gran abs 0.0 0.0 - 0.1 K/cumm [facility] Lymphocyte abs 2.4 0.8 - 3.3 K/cumm [facility] Monocyte abs 0.7 0.2 - 0.8 K/cumm [facility] Eosinophil abs 0.3 0.0 - 0.5 K/cumm [facility] Basophil abs 0.0 0.0 - 0.1 K/cumm [facility] Neutrophil pct 65.8 % [facility] Comment: Interpretive Data Percent cell count reference ranges are not reported, since discordance with absolute values may lead to misinterpretation of CBC data. Current Interpretive Data was last revised on 2017. Imm gran pct 0.4 % [facility] Comment: Interpretive Data Percent cell count reference ranges are not reported, since discordance with absolute values may lead to misinterpretation of CBC data. Current Interpretive Data was last revised on 2017. Lymphocyte pct 24.0 % [facility] Comment: Interpretive Data Percent cell count reference ranges are not reported, since discordance with absolute values may lead to misinterpretation of CBC data. Current Interpretive Data was last revised on 2017. Monocyte pct 6.5 % [facility] Comment: Interpretive Data Percent cell count reference ranges are not reported, since discordance with absolute values may lead to misinterpretation of CBC data. Current Interpretive Data was last revised on 2017. Eosinophil pct 3.0 % [facility] Comment: Interpretive Data Percent cell count reference ranges are not reported, since discordance with absolute values may lead to misinterpretation of CBC data. Current Interpretive Data was last revised on 2017. Basophil pct 0.3 % [facility] Comment: Interpretive Data Percent cell count reference ranges are not reported, since discordance with absolute values may lead to misinterpretation of CBC data. Current Interpretive Data was last revised on 2017. Blood 07/02/2024 2:38 PM CDT 07/02/2024 3:12 PM CDT us Tonya Sibley BED AND BREAKFAST INNKEEPER LAB BLOOD ORDERABLES Final Re sult [facility] Department [place] [address] * (ABNORMAL) CBC with auto differential (07/02/2024 2:38 PM CDT) [facility] WBC 10.0(H) 3.8 - 9.9 K/cumm Hgb 14.0 13.0 - 17.5 g/dL [facility] Hct 41.1 38.9 - 50.3 % [facility] Plt 332 150 - 400 K/cumm [facility] MPV 9.1 9.1 - 12.3 fL [facility] RBC 4.42 4.30 - 5.80 M/cumm [facility] MCV 93.0 81.3 - 96.4 fL [facility] MCH 31.7 27.1 - 33.3 pg [facility] MCHC 34.1 32.3 - 35.7 g/dL [facility] RDW CV 13.4 11.1 - 14.9 % [facility] RDW SD 46.2 35.7 - 48.1 fL [facility] NRBC abs 0.00 0.00 - 0.01 K/cumm [facility] Blood 07/02/2024 2:38 PM CDT 07/02/2024 3:12 PM CDT us Tonya Sibley BED AND BREAKFAST INNKEEPER LAB BLOOD ORDERABLES Final Re sult Performing Organization Address [facility] [employer] de Phone Number [facility] Department [place] [address] * (ABNORMAL) Uric acid (07/02/2024 2:38 PM CDT) [facility] Uric acid 9.3(H) 3.0 - 8.0 mg/dL Blood 07/02/2024 2:38 PM CDT 07/02/2024 3:12 PM CDT Tonya Sibley BED AND BREAKFAST INNKEEPER LAB BLOOD ORDERABLES Final Re sult [facility] Department [place] [address] * (ABNORMAL) Basic metabolic panel (07/02/2024 2:38 PM CDT) Sodium 142 135 - 145 mmol/L Potassium, pl 4.3 3.3 - 4.9 mmol/L [facility] Chloride 105 97 - 110 mmol/L [facility] CO2 28 22 - 32 mmol/L [facility] Anion gap 9 2 - 15 mmol/L [facility] BUN 31(H) 6 - 25 mg/dL [facility] Creatinine 1.57(H) 0.80 - 1.30 mg/dL [facility] Glucose 102 70 - 199 mg/dL [facility] Comment: Interpretive Data Fasting glucose >/= 126 [...] classification and Diagnosis of Diabetes Diabetes Care 202; 46: S19-S40. Current interpretive data was last revised 2022. Calcium 8.9 8.5 - 10.3 mg/dL [facility] Blood 07/02/2024 2:38 PM CDT 07/02/2024 3:12 PM CDT us Tonya Sibley BED AND BREAKFAST INNKEEPER LAB BLOOD ORDERABLES Final Re sult [facility] Department [place] [address] * CT Shoulder Left WO Contrast (06/20/2024 2:52 PM APPLICATION SOFTWARE DEVELOPER) Anatomical Region Laterality Modality Upper Extremities Left Computed Tomog shannon 06/20/2024 3:30 PM APPLICATION SOFTWARE DEVELOPER Impressions 06/20/2024 3:47 PM APPLICATION SOFTWARE DEVELOPER 1. No acute fracture in the left shoulder. Dictated by: Americo Womack M.D. The radiology attending physician has personally reviewed this study, and had reviewed and/or edited this written report and agrees with it. Electronically signed by: Shweta Cheung MD Narrative 06/20/2024 3:47 PM APPLICATION SOFTWARE DEVELOPER EXAMINATION: CT SHOULDER LEFT WO CONTRAST HISTORY: [...] signed by: Shweta Cheung MD us Michael Martinez MD IM CT PROCEDURES Final Resul t * CT Chest WO Contrast (06/20/2024 2:52 PM APPLICATION SOFTWARE DEVELOPER) Anatomical Region Laterality Modality Body N/A Computed Tomogra phy
--- OUTSIDE RECORDS SUMMARY | 2024-09-09 22:44 | XMS_ITS | CONTINUITY OF CARE DOCUMENT ---
Author Name nimesh beavers Address Unknown Organization [facility] Address [id number] [place] [address] [address] [place] [address] Phone [phone] Care Team Providers Care Seismic Prospecting Supervisor Name Role Phone nimesh beavers Unavailable Unavailable INSURANCE PROVIDERS Payer name Policy type / Coverage type [place] red republican ID [facility] Other [id number]
--- OUTSIDE RECORDS SUMMARY | 2024-09-09 22:44 | XMS_ITS | Encounter Summary ---
Author Organization [facility] Address [address] [place] [address] Care Team Providers Care Flame Annealing Machine Setter Name Role Phone Mone Martinez MD Primary Care Provider [phone] Jaquan Fitzgerald AUTO SUSPENSION AND STEERING MECHANIC Unavailable [phone] Reason for Referral * Diagnostic Imaging (Routine) - Closed Specialty Diagnoses / Procedures Referred By Contac t Referred To Contact Diagnoses Pain of right lower extremity Procedures US Vein Duplex Lower Extremity Right Limited Mone Martinez MD Phone: tel: fax: Referral ID Status Reason Start Date Expiration Date Visits Re quested Visits Authorized [id number] Closed 09/10/2019 03/21/2021 1 1 Encounter Details Date Type Department Care Team (Late st Contact Info) Description 09/10/2019 Orders Only Internal Medicine Mone Martinez MD [address] [address] Pain of right lower extremity (Primary Dx) Social History Tobacco Use Types Packs/Day Years Used Date Smoking Tobacco: Never Smokeless Tobacco: Never Alcohol Use Standard Drinks/Week Comments Yes 0 (1 standard drink = 0.6 oz pur e alcohol) Sex and Gender Information Value Date Recorded Sex Assigned at Not on file Legal Sex Male 1:33 AM CONTROL BOARD OPERATOR Gender Identity Not on file Sexual Orientation Straight 06/26/2020 8: 12 PM CONTROL BOARD OPERATOR documented as of this encounter Progress Notes * Kimberly Thompson - 09/10/2019 9:04 AM CDT leslie documented in this encounter Plan of Treatment Scheduled Procedures Name Priority Associated Diagnoses Date/Ti me COLONOSCOPY Encounter for screening colonoscopy documented as of this encounter Results * US Vein Duplex Lower Extremity Right Limited (09/10/2019 10:46 AM CDT) Anatomical Region Laterality Modality Vascular Right Ultrasound 09/10/2019 10:3 3 AM CDT Narrative 09/10/2019 4:14 PM CDT [facility] - Department of Vascular Surgery, Vascular Laboratory [address] [place] [address] Lower Extremity Venous Ultrasound Report Patient Name: JONY GALEANO W : 1950 (69y 5m) Study Date: 09/10/2019 10:33:13 AM Gender: M Tech: Location: [facility] Ref.Provider: MONE MARTINEZ Quality: Adequate Order Provider: MONE MARTINEZ Procedures: Vascular Report: Venous Duplex imaging was performed in the right lower extremity. The common femoral, femoral, popliteal, posterior tibial, peroneal veins were evaluated for patency, spontaneity and phasicity with Doppler, compression and augmentation maneuvers. Great saphenous vein proximal at the junction was evaluated with compression maneuvers. - Indications: Pain in right lower extremity. Findings: Performing Nail Making Machine Setter: Norah Joy RVT. Right: Venous Doppler signals [...] Electronically Signed By: Srinivasan Mtz MD [facility] 2019-09-10 16:14:28 CDT CC: CC: Procedure Note Srinivasan Mtz MD - 09/10/2019 [facility] - Department of Vascular Surgery,Vascular Laboratory [address] [place] [address] Lower Extremity Venous Ultrasound Report Patient Name: JONY GALEANO W : 1950 (69y 5m) Study Date: 09/10/2019 10:33:13 AM Gender: M Tech: Location: [facility] Ref.Provider: MONE MARTINEZ Quality: Adequate Order Provider: MONE MARTINEZ Procedures: Vascular Report: Venous Duplex imaging was performed in the right lower extremity. Thecommon femoral, femoral, popliteal, posterior tibial, peroneal veins were evaluated forpatency, spontaneity and phasicity with Doppler, compression and augmentationmaneuvers. Great saphenous vein proximal at the junction was evaluated with compressionmaneuvers. - Indications: Pain in right lower extremity. Findings: Performing Nail Making Machine Setter: Norah Joy RVT. Right: Venous Doppler signals [...] Electronically Signed By: Srinivasan Mtz MD [facility] 2019-09-10 16:14:28 CDT CC: CC: us Mone Martinez MD IM US PROCEDURES Final Resul t documented in this encounter Visit Diagnoses Diagnosis Pain of right lower extremity- Primary Pain of right lower extremity documented in this encounter Additional Health Concerns Infection Onset Date Last Indicated Resolved Time COVID: Suspected 03/23/2024 03/23/2024 03/24/2024 12:45 AM CONTROL BOARD OPERATOR COVID: Suspected 05/03/2024 05/03/2024 05/03/2024 1:03 PM CONTROL BOARD OPERATOR COVID: Suspected 05/03/2024 05/03/2024 05/03/2024 8:06 PM CONTROL BOARD OPERATOR documented as of this encounter Care Teams Flame Annealing Machine Setter Relationship Specialty Start Date End Date Mone Martinez MD PCP - General Internal Medicine 12/14/17 Jaquan Fitzgerald NP Cardiovascular Disease 06/09/23 documented as of this encounter
--- OUTSIDE RECORDS SUMMARY | 2024-09-09 22:44 | XMS_ITS | Encounter Summary ---
Author Organization [facility] Healthcare Address [address] [place] [address] Care Team Providers Care Golf Club Weighter Name Role Phone Michael Martinez MD Primary Care Provider [phone] Jaquan Fitzgerald BASIN TENDER Unavailable [phone] Encounter Details Date Type Department Care Team (Latest Contact Info) Description 09/09/2024 Telephone Cardiology Candice Eubanks MD [address] [place] [address] Social History Tobacco Use Types [...] on file Legal Sex Male 1:33 AM COMMERCIAL CONSTRUCTION SUPERINTENDENT Gender Identity Not on file Sexual Orientation Straight 06/26/2020 8: 12 PM COMMERCIAL CONSTRUCTION SUPERINTENDENT documented as of this encounter Miscellaneous Notes [...] son and have him drive him to [facility]. Electronic Signature: Candice Eubanks MD Visitor Services Technician documented in this encounter Plan of Treatment Scheduled Procedures Name Priority Associated Diagnoses Date/Ti me COLONOSCOPY Encounter for screening colonoscopy documented as of this encounter Visit Diagnoses Not on filedocumented in this encounter Care Teams Golf Club Weighter Relationship Specialty Start Date End Date Michael Martinez MD PCP - General Internal Medicine 12/14/17 Jaquan Fitzgerald NP Cardiovascular Disease 06/09/23 documented as of this encounter
--- OUTSIDE RECORDS SUMMARY | 2024-09-09 22:44 | XMS_ITS | Continuity of Care Document ---
Author Organization [facility] Address [address] [place] [address] Phone Care Team Providers Care Collection Support Specialist Name Role Phone Administrative, Provider Unavailable Unavail [...] Date Provider Providers Copied on Encounter [facility], [address], [id number], [place] tel:[phone] Spectral Edge No Information Administrati ve Provider. [address], [address], [place], [place], [id number], [place]. tel:[phone] [facility], [address] [place] [address], [place], [place], [id number], [place] tel:[phone] [facility] Localised, primary osteoarthritis of the lower leg 4 Administrati ve Provider. [address], [address], [place], [place], [id number], [place]. tel:[phone] Referring Provider: Dale Torres, [address], [place], [address] . tel:[phone] Family History Family Member Type Diagnosis Age At Onset Mother Problem (finding) hypertension Mother Problem (finding) Heart disease Payers Payer name Insurance type Covered democrat ID Karlkyle catiejamie(s) [facility] [id number] Social History Type Description Quantity Date [...]
[2024-09-09 23:10] VITALS: BP 158/114; PULSE 74; RESP 18; O2SAT 95
--- NOTE | 2024-09-09 23:10 | PC.NURSE ---
Assumed care of pt from Caridad VASQUEZ at this time.
--- NOTE | 2024-09-09 23:19 | ED_ITS ---
HPI - Dizziness General Chief Complaint: Dizziness Stated Complaint: High BP --sent by Cigar Packing Examiner Time Seen by Provider: 09/09/24 22:32 History of Present Illness HPI Narrative: Patient presents here with sent by his chronograph operator after he reported to chronograph operator that he was clammy, having lots of diarrhea, with blood pressure of 250. He is on blood pressure medications but is not taking lisinopril anymore because he thought it made his blood pressure too low. To me he states that he has been having more urinary frequency, some diarrhea, and some dizziness but that has essentially resolved. Denies chest pain or shortness of breath or abdominal pain. Related Data Home Medications Medication Instructions Recorded Confirmed Last Taken Type clopidogrel 75 mg tablet 75 mg PO DAILY 08/27/19 09/09/24 Unknown History atorvastatin 80 mg tablet 80 mg PO DAILY 09/15/20 09/09/24 Unknown History doxazosin 8 mg tablet 8 mg PO DAILY 09/15/20 09/09/24 Unknown History hydrochlorothiazide 50 mg tablet 50 mg PO DAILY 09/15/20 09/09/24 Unknown History colchicine 0.6 mg tablet 0.6 mg PO BID 09/09/24 09/09/24 Unknown History cyclobenzaprine 5 mg tablet 5 mg PO TID PRN muscle spasm 09/09/24 09/09/24 Unknown History lisinopril 20 mg tablet 20 mg PO ONCE 09/09/24 09/09/24 Unknown History Allergies Allergy/AdvReac Type Severity Reaction Status Date / Time No Known Allergies Allergy Verified 09/09/24 20:50 Review of Systems 2 Review of Systems: All systems reviewed & are unremarkable except as noted in HPI and below PMFSH Past Medical History Medical History Arthritis Hypertension Hypercholesteremia Patient denies significant medical history Surgical History Surgical History H/O right knee surgery Family History Family History Mother Family history of lung cancer Other Diabetes mellitus Family history of cardiovascular disease Hypertension Social History Social History Smoking status: Never smoker Alcohol intake: current Drinks per week: 1 Substance use: never Living arrangements: with family Occupation/Education: retired Gender identity (if verbalized by the patient): Male Spiritual care concerns: No Exam 2 Narrative: EXAMINATION OF ORGAN SYSTEMS/BODY AREAS: Constitutional: Vital signs per nursing GENERAL:[No acute distress, non-toxic appearing.] Very well-appearing, sitting in bed. HEAD: Normal with no signs of head trauma. EYES: EOMI, conjunctiva normal, PERRL ENT: Hearing grossly intact LUNGS: Nonlabored breathing. HEART: [Regular rate and rhythm] ABD: [Soft], [nontender to palpation] EXT: Normal range of motion SKIN: [No rashes or lesions.] NEURO: [Alert and oriented x 3. No gross focal sensory or strength deficits.] Ambulating with normal steady gait, speaking with clear speech. PSYCH: Normal affect Course Vital Signs Vital signs: Vital Signs Temperature 98.5 F 09/09/24 20:54 Pulse Rate 91 09/09/24 20:54 Respiratory Rate 19 09/09/24 20:54 Blood Pressure 182/115 H 09/09/24 20:54 Pulse Oximetry 94 09/09/24 20:54 Oxygen Delivery Room Air 09/09/24 20:54 Temperature 97.8 F 09/10/24 03:31 Pulse Rate 82 09/10/24 03:31 Respiratory Rate 16 09/10/24 03:31 Blood Pressure 177/95 H 09/10/24 03:31 Pulse Oximetry 97 09/10/24 03:31 Oxygen Delivery Room Air 09/09/24 20:54 MDM - Dizziness MDM Narrative Medical decision making narrative: Patient reportedly sent in for hypertension(?), however he is unable to tell me what medication he is supposed to be taking. EKG on my independent interpretation showing what appears to be atrial fibrillation versus possible lots of PACs/PVCs, rate 74, QRS 136, QTC 486, no significant ST elevations or depressions. I called his [facility] chronograph operator Dr. Rosales's office and spoke with his fellow Dr. Harvey to obtain medication list and he is on atorvastatin 80mg, vit D, plavix 75mg, colchicine 0.6mg BID (started 1 wk ago), flexeril 5mg BID, doxazosin 4mg, HCTZ 50mg, lisinopril 20mg. I did discuss with him that our EKG here is showing possible atrial fibrillation and he has never been diagnosed with this before per the chronograph operator, they will follow up in clinic. When I brought up the lisinopril, patient states that he has stopped taking it because he thought it made his blood pressure go low, so I do suspect this may be why his pressure is high today. He does have a UTI so I will start him on ceftriaxone. Labs to seem consistent with dehydration given the elevated creatinine and BUN so I will give a L of IV fluids. CT abdomen/pelvis obtained given the report of the ongoing diarrhea and UTI. CT on radiology interpretation no obvious abnormality. I discussed findings with patient, they are very happy to go home at this time. He has no complaints other than feeling cold. Prescriptions for antibiotics provided as establish a follow-up with his chronograph operator given the possible new atrial fibrillation and the hypertension, he has an appointment already tomorrow, I have let him and know they can always return to ER for any further issues and they are agreeable to this plan. Lab Data 09/09/24 23:16 09/09/24 23:16 Labs: Lab Results 09/09/24 09/09/24 Range/Units 22:19 23:16 WBC 8.4 (4.5-10.0) K/mm3 RBC 4.88 (4.6-6.20) M/mm3 Hgb 15.3 (14.0-18.0) g/dL Hct 45.7 (42.0-52.0) % MCV 93.6 (80-100) fl MCH 31.4 (26-34) pg MCHC 33.5 (32-36) g/dl RDW 13.3 (11.5-14.5) % Plt Count 285 (150-375) k/mm3 MPV 9.2 (7.4-10.4) fl Immature Gran % (Auto) 0.1 (0-0.5) % Neut % (Auto) 63.8 (45.5-73.1) % Lymph % (Auto) 26.1 (18.3-44.2) % [place] % (Auto) 8.5 (2.6-8.5) % Eos % (Auto) 1.1 (0-4.4) % Baso % (Auto) 0.4 (0.2-1.2) % Lymph # (Auto) 2.20 (0.9-3.2) K/mm3 [place] # (Auto) 0.7 H (0.1-0.6) K/mm3 Eos # (Auto) 0.1 (0-0.3) K/mm3 Baso # (Auto) 0.0 (0.0-0.1) K/mm3 Abs Immat Gran (auto) 0.01 (0.00-0.031) K/mm3 Absolute Neuts (auto) 5.4 (1.3-6.7) K/mm3 Absolute Nucleated RBC 0.000 (0.0-0.012) K/mm3 Nucleated RBC % 0.0 (0.0-0.2) % Sodium 140 (137-145) mmol/L Potassium 3.4 (3.4-5.0) mmol/L Chloride 105 (98-107) mmol/L Carbon Dioxide 26 (22-30) mmol/L Anion Gap 9 (4-12) mmol/L BUN 30 H D (9-20) mg/dL Creatinine 1.34 H (0.7-1.3) mg/dL Estim Creat Clear Calc 45 ml/min Estimated GFR 52 L (59 - ) Glucose 103 (65-110) mg/dL Calcium 9.0 (8.4-10.2) mg/dL Total Bilirubin 0.8 (0.2-1.3) mg/dL AST 29 (17-59) U/L ALT 13 (6-50) U/L Alkaline Phosphatase 91 (38-126) U/L Troponin I 0.017 (0.000-0.034) ng/mL Total Protein 7.0 (6.3-8.2) g/dL Albumin 4.3 (3.5-5.1) g/dL Urine Color Yellow (Yellow) Urine Appearance Cloudy H (Clear) Urine pH 7.0 (5.0-9.0) Ur Specific [place] 1.020 (1.001-1.035) Urine Protein 2+ H (Negative) mg/dL Urine Glucose (UA) Negative (Negative) mg/dL Urine Ketones Trace H (Negative) mg/dL Ur Blood (Man) Trace (Negative) Urine Nitrate Negative (Negative) Urine Bilirubin Negative (Negative) Urine Urobilinogen 1.0 (<2.0) mg/dL Leukocyte Esterase Rfl 3+ H (Negative) MORAIMA/UL Urine RBC 0-2 (0-2) /hpf Urine WBC >100 H (0-3) /hpf Ur Squamous Epith Cells None seen (Few) /hpf Urine Bacteria 1+ H /hpf Urine Casts 6-10 Discharge Plan Discharge Clinical Impression: Acute dehydration, Chronic hypertension, Acute UTI Patient Disposition: Home Condition: Stable Instructions: Antibiotic Form, Urinary Tract Infection in Men (ED), Chronic Hypertension (ED) Additional Instructions: Make sure you are taking all of your medications. Start the antibiotics as prescribed, and call your chronograph operator's office tomorrow for close follow-up for your heart rhythm and blood pressure. You can always return to the emergency room for any further issues. Patient Language: Citizen Of [place] Prescriptions: New nitrofurantoin monohyd/m-cryst [Macrobid] 100 mg capsule 100 mg PO Q12H 7 Days Qty: 14 0RF Rx Instructions: must administer with a meal/food No Action lisinopril 20 mg tablet 20 mg PO ONCE colchicine 0.6 mg tablet 0.6 mg PO BID cyclobenzaprine 5 mg tablet 5 mg PO TID PRN (Reason: muscle spasm) clopidogrel 75 mg Tablet 75 mg PO DAILY potassium chloride 20 mEq tablet extended release 20 meq PO BID Qty: 7 0RF hydrochlorothiazide 50 mg tablet 50 mg PO DAILY doxazosin 8 mg tablet 8 mg PO DAILY atorvastatin 80 mg tablet 80 mg PO DAILY Follow-up/Referrals: Michelle,Michael Michelle MD [Primary Care Provider] -
[2024-09-09 23:20] LABS: Add Urine Microscopic? YES; Appearance Urine Cloudy (Clear); Bacteria Urine 1+ /hpf; Bilirubin Urine Negative (Negative); Blood Urine Trace (Negative); Color Urine Yellow (Yellow); Glucose Urine UA Negative (Negative); Ketones Urine Trace mg/dL (Negative); Leukocyte Esterase Ur 3+ LEU/UL (Negative); Nitrate Urine Negative (Negative); Protein Urine 2+ mg/dL (Negative); RBC Urine 0-2 /hpf (0-2); Squamous Epithelial Cell Urine None Seen /hpf (Few); WBC Urine >100 /hpf (0-3)
[2024-09-09 23:26] LABS: Basophils Percent Auto 0.4 % (0.2-1.2); Eosinophils Absolute Auto 0.1 K/mm3 (0-0.3); Eosinophils Percent Auto 1.1 % (0-4.4); Hematocrit 45.7 % (42.0-52.0); Hemoglobin 15.3 g/dL (14.0-18.0); Immature Granulocyte Absolute 0.01 K/mm3 (0.00-0.031); Immature Granulocyte Percent A 0.1 % (0-0.5); Lymphocytes Percent Auto 26.1 % (18.3-44.2); Mean Corpuscular HGB Conc 33.5 g/dl (32-36); Mean Corpuscular Hemoglobin 31.4 pg (26-34); Mean Corpuscular Volume 93.6 fl (80-100); Mean Platelet Volume 9.2 fl (7.4-10.4); Monocytes Absolute Auto 0.7 K/mm3 (0.1-0.6); Monocytes Percent Auto 8.5 % (2.6-8.5); Neutrophils Absolute Auto 5.4 K/mm3 (1.3-6.7); Neutrophils Percent Auto 63.8 % (45.5-73.1); Platelet Count Result 285 k/mm3 (150-375); Red Blood Count 4.88 M/mm3 (4.6-6.20); Red Cell Distribution Width 13.3 % (11.5-14.5); White Blood Count 8.4 K/mm3 (4.5-10.0)
[2024-09-09 23:33] LABS: Alanine Aminotransferase 13 U/L (6-50); Albumin Level 4.3 g/dL (3.5-5.1); Alkaline Phosphatase 91 U/L (38-126); Anion Gap 9 mmol/L (4-12); Aspartate Amino Transferase 29 U/L (17-59); Bilirubin,Total 0.8 mg/dL (0.2-1.3); Blood Urea Nitrogen 30 mg/dL (9-20); Carbon Dioxide 26 mmol/L (22-30); Chloride 105 mmol/L (98-107); Estimated CRCL calculation 45 ml/min; Estimated Glomerular Filt Rate 52; Glucose 103 mg/dL (65-110); Potassium 3.4 mmol/L (3.4-5.0); Sodium 140 mmol/L (137-145)
[2024-09-09 23:45] LABS: Troponin I 0.017 ng/mL (0.000-0.034)
[2024-09-10] MEDS: cefTRIAXone 2 GM/NS 100 ML 2 GM/100 ML BAG IVPB (01:48)
[2024-09-10] MEDS: SODIUM CHLORIDE 0.9% IV 1,000 ML 999 ML IV CONT (02:29)
[2024-09-10 03:31] VITALS: BP 177/95; PULSE 82; RESP 16; TEMP 36.6; O2SAT 97
== END 2024-09-10 03:25 | disposition home or self-care (01) ==
PROVIDERS: Emergency Medicine; Emergency Provider Emergency Medicine; PCP Internal Medicine
DX: N39.0 Urinary tract infection, site not specified (principal); E86.0 Dehydration; I10 Essential (primary) hypertension; E78.00 Pure hypercholesterolemia, unspecified; M19.90 Unspecified osteoarthritis, unspecified site; Z79.02 Long term (current) use of antithrombotics/antiplatelets; Z79.899 Other long term (current) drug therapy; I45.10 Unspecified right bundle-branch block; I48.91 Unspecified atrial fibrillation
CPT/HCPCS: 36415; 74177; 80053; 81001; 84484; 85025; 87077; 87086; 87186; 93005; 96361; 96365; 99284; J0696; J7030; Q9967